=== PATIENT | female | born 1990 | race Caucasian/White ===

== ENCOUNTER 2019-12-30 08:43 | Outpatient (CLI) | payer BC, SELFPAY ==
--- NOTE | 2019-12-30 11:00 | NEURO_ITS ---
Patient Number: [id number] Impression: # Complains of tingling in upper extremities in different positions. # Normal nerve conduction study without evidence of Carpal Tunnel Syndrome or ulnar neuropathy. # Normal needle/EMG exam. Nerve Conduction Studies Anti Sensory Summary Table Stim Site NR Peak (ms) P-T Amp (?V) Site1 Site2 Delta-P (ms) Dist (cm) Gopal (m/s) Left Median Anti Sensory (2-3nd Digit) Wrist 2.6 81.4 Wrist 2-3nd Digit 2.6 14.0 54 Wrist 2.6 89.5 Wrist 2-3nd Digit 2.6 14.0 54 Right Median Anti Sensory (2-3nd Digit) Wrist 2.3 73.1 Wrist 2-3nd Digit 2.3 14.0 61 Wrist 2.3 62.0 Wrist 2-3nd Digit 2.3 14.0 61 Left Radial Anti Sensory (Base 1st Digit) Wrist 1.9 37.3 Wrist Base 1st Digit 1.9 0.0 Right Radial Anti Sensory (Base 1st Digit) Wrist 1.8 46.2 Wrist Base 1st Digit 1.8 0.0 Left Ulnar Anti Sensory (5th Digit) Wrist 2.5 69.2 Wrist 5th Digit 2.5 14.0 56 Right Ulnar Anti Sensory (5th Digit) Wrist 2.4 59.5 Wrist 5th Digit 2.4 14.0 58 Motor Summary Table Stim Site NR Onset (ms) O-P Amp (mV) Site1 Site2 Delta-0 (ms) Dist (cm) Gopal (m/s) Left Median Motor (Abd Poll Brev) Wrist 3.0 3.2 Elbow Wrist 4.3 26.0 60 Elbow 7.3 2.4 Right Median Motor (Abd Poll Brev) Wrist 2.3 7.3 Elbow Wrist 4.2 26.0 62 Elbow 6.5 7.2 Left Ulnar Motor (Abd Dig Minimi) Wrist 2.5 5.9 A Elbow Wrist 4.5 27.0 60 A Elbow 7.0 4.7 Right Ulnar Motor (Abd Dig Minimi) Wrist 2.8 5.0 A Elbow Wrist 4.2 27.0 64 A Elbow 7.0 3.5 B Elbow Wrist 11.0 0.0 B Elbow 13.8 0.1 F Wave Studies NR F-Lat (ms) L-R F-Lat (ms) Left Median (Mrkrs) (Abd Poll Brev) 25.23 0.00 Right Median (Mrkrs) (Abd Poll Brev) 25.23 0.00 Left Ulnar (Mrkrs) (Abd Dig Min) 25.65 1.08 Right Ulnar (Mrkrs) (Abd Dig Min) 24.56 1.08 EMG Side Muscle Nerve Root Ins Act Fibs Amp Dur Recrt Comment Right 1stDorInt Ulnar C8-T1 Nml Nml Nml Nml Nml Right Ext Indicis Radial (Post Int) C7-8 Nml Nml Nml Nml Nml Right Ext Digitorum Radial (Post Int) C7-8 Nml Nml Nml Nml Nml Right BrachioRad Radial C5-6 Nml Nml Nml Nml Nml Right PronatorTeres Median C6-7 Nml Nml Nml Nml Nml Right Abd Poll Brev Median C8-T1 Nml Nml Nml Nml Nml Left 1stDorInt Ulnar C8-T1 Nml Nml Nml Nml Nml Left Ext Indicis Radial (Post Int) C7-8 Nml Nml Nml Nml Nml Left Ext Digitorum Radial (Post Int) C7-8 Nml Nml Nml Nml Nml Left BrachioRad Radial C5-6 Nml Nml Nml Nml Nml Left PronatorTeres Median C6-7 Nml Nml Nml Nml Nml Left Abd Poll Brev Median C8-T1 Nml Nml Nml Nml Nml MTDD
== END 2019-12-30 08:44 | disposition home or self-care (01) ==
PROVIDERS: PCP Internal Medicine; Visit Provider Internal Medicine
DX: R20.2 Paresthesia of skin (principal)
CPT/HCPCS: 95886; 95911

== ENCOUNTER 2020-10-20 08:41 | Observation (INO) | payer BC, SELFPAY ==
[2020-10-20] VITALS (27 sets, daily range): BP systolic 103–116; BP diastolic 51–63; PULSE 68–90; O2SAT 95–100; BMI 27.5
--- NOTE | 2020-10-20 09:41 | OBADM ---
This patient, Trixie Catalan, admitted to the OB room OB Post 117 for observation. Patient/family oriented to hospital policies and general routines including ID bracelet, bed and alarms, visiting hours, pain management, procedures, bathroom and other care routines, personal items, smoking policy, room service/diet, and visiting hours. Patient/Family are encouraged to report perceived risks to care and to ask questions if they do not understand what they are told or what they should do.
[2020-10-20 09:48] LABS: Hematocrit 33.3 % (37.0-47.0); Hemoglobin 11.2 g/dL (12.0-15.0); Mean Corpuscular HGB Conc 33.6 g/dl (32-36); Mean Corpuscular Hemoglobin 30.4 pg (26-34); Mean Corpuscular Volume 90.2 fl (80-100); Mean Platelet Volume 10.8 fl (7.4-10.4); Platelet Count Result 203 k/mm3 (150-375); Red Blood Count 3.69 M/mm3 (4.2-5.4); Red Cell Distribution Width 12.2 % (11.5-14.5)
[2020-10-20 09:54] LABS: Alanine Aminotransferase 11 U/L (4-35); Albumin Level 3.4 g/dL (3.5-5.1); Alkaline Phosphatase 76 U/L (38-126); Anion Gap 2 mmol/L (8-16); Aspartate Amino Transferase 20 U/L (14-36); Bilirubin,Total 0.1 mg/dL (0.2-1.3); Blood Urea Nitrogen 10 mg/dL (7-17); Calcium 8.7 mg/dL (8.4-10.2); Carbon Dioxide 27 mmol/L (22-30); Chloride 107 mmol/L (98-107); Estimated CRCL calculation 118 ml/min; Estimated Glomerular Filt Rate > 60; Glucose 103 mg/dL (65-105); Potassium 4.3 mmol/L (3.4-5.0); Sodium 136 mmol/L (137-145)
[2020-10-20 10:07] LABS: Add Urine Microscopic? YES; Appearance Urine Cloudy (Clear); Bacteria Urine Trace /hpf; Bilirubin Urine Negative (Negative); Blood Urine Negative (Negative); Color Urine Yellow (Yellow); Glucose Urine UA Negative (Negative); Ketones Urine Negative (Negative); Leukocyte Esterase Ur 2+ LEU/UL (Negative); Nitrate Urine Negative (Negative); Protein Urine Negative (Negative); Specific Grav Ur 1.006 (1.001-1.035); Squamous Epithelial Cell Urine Many /hpf (Few); Urobilinogen Urine Negative mg/dL (<2.0)
--- NOTE | 2020-10-25 07:41 | PM.OBTRLD ---
OB - Triage/Final Diagnosis Visit Information Comments/Additional reasons for admission: I have assessed the risk for this patient, Trixie Catalan, and determined that she would benefit from observation care. Evaluation Laboratory results: Laboratory Tests 10/20/20 10/20/20 10/20/20 09:13 09:13 09:13 WBC 8.0 RBC 3.69 L Hgb 11.2 L Hct 33.3 L MCV 90.2 MCH 30.4 MCHC 33.6 RDW 12.2 Plt Count 203 MPV 10.8 H Sodium 136 L Potassium 4.3 Chloride 107 Carbon Dioxide 27 Anion Gap 2 L BUN 10 Creatinine 0.60 L Estim Creat Clear Calc 118 Estimated GFR > 60 Glucose 103 Calcium 8.7 Total Bilirubin 0.1 L AST 20 ALT 11 Alkaline Phosphatase 76 Total Protein 7.0 Albumin 3.4 L Urine Color Yellow Urine Appearance Cloudy H Urine pH 7.0 Ur Specific [place] 1.006 Urine Protein Negative Urine Glucose (UA) Negative Urine Ketones Negative Ur Blood (Man) Negative Urine Nitrate Negative Urine Bilirubin Negative Urine Urobilinogen Negative Leukocyte Esterase Rfl 2+ H Urine WBC 7-9 H Ur Squamous Epith Cells Many H Urine Bacteria Trace
--- NOTE | 2020-10-27 11:23 | PM.OBTRLD ---
OB - Triage/Final Diagnosis Visit Information Reason for evaluation: threatened labor Comments/Additional reasons for admission: I have assessed the risk for this patient, Trixie Catalan, and determined that she would benefit from observation care. Evaluation Laboratory results: Laboratory Tests 10/20/20 10/20/20 10/20/20 09:13 09:13 09:13 WBC 8.0 RBC 3.69 L Hgb 11.2 L Hct 33.3 L MCV 90.2 MCH 30.4 MCHC 33.6 RDW 12.2 Plt Count 203 MPV 10.8 H Sodium 136 L Potassium 4.3 Chloride 107 Carbon Dioxide 27 Anion Gap 2 L BUN 10 Creatinine 0.60 L Estim Creat Clear Calc 118 Estimated GFR > 60 Glucose 103 Calcium 8.7 Total Bilirubin 0.1 L AST 20 ALT 11 Alkaline Phosphatase 76 Total Protein 7.0 Albumin 3.4 L Urine Color Yellow Urine Appearance Cloudy H Urine pH 7.0 Ur Specific [place] 1.006 Urine Protein Negative Urine Glucose (UA) Negative Urine Ketones Negative Ur Blood (Man) Negative Urine Nitrate Negative Urine Bilirubin Negative Urine Urobilinogen Negative Leukocyte Esterase Rfl 2+ H Urine WBC 7-9 H Ur Squamous Epith Cells Many H Urine Bacteria Trace
== END 2020-10-20 10:45 | disposition home or self-care (01) ==
PROVIDERS: Obstetrics & Gynecology; Admitting Provider Obstetrics & Gynecology; PCP Internal Medicine; Visit Provider Obstetrics & Gynecology
DX: O47.9 False labor, unspecified (principal); Z3A.00 Weeks of gestation of pregnancy not specified
CPT/HCPCS: 36415; 80053; 81001; 85027; 87086; 87088; G0378; G0379

== ENCOUNTER 2020-11-19 13:36 | Outpatient (RCR) | payer BC, SELFPAY ==
[2020-10-13 15:03] VITALS: BP 112/60; PULSE 77
[2020-11-04 11:27] VITALS: BP 103/59; PULSE 80
== END 2020-11-27 09:10 | disposition home or self-care (01) ==
LOC: ANHOBOP 13:36
PROVIDERS: PCP Internal Medicine; Visit Provider Obstetrics & Gynecology
DX: O99.413 Diseases of the circulatory system complicating pregnancy, third trimester (principal); I99.9 Unspecified disorder of circulatory system; Z3A.32 32 weeks gestation of pregnancy
CPT/HCPCS: 59025; J0131; J2250; J2274; J2590

== ENCOUNTER 2020-11-25 07:34 | Inpatient (IN) | payer BC, SELFPAY ==
[2020-11-04 11:32] VITALS: BMI 28.6
[2020-11-25] VITALS (176 sets, daily range): BP systolic 53–154; BP diastolic 26–114; PULSE 55–269; RESP 15–22; TEMP 36.3–37; O2SAT 89–100; BMI 29.9
[2020-11-25] MEDS: LACTATED RINGERS 1,000 ML 999 ML (08:06)
[2020-11-25 08:11] LABS: Basophils Percent Auto 0.4 % (0.2-1.2); Eosinophils Absolute Auto 0.1 K/mm3 (0-0.3); Hematocrit 35.5 % (37.0-47.0); Immature Granulocyte Absolute 0.04 K/mm3 (0.00-0.031); Immature Granulocyte Percent A 0.5 % (0-0.5); Lymphocytes Percent Auto 19.2 % (18.3-44.2); Mean Corpuscular HGB Conc 33.8 g/dl (32-36); Mean Corpuscular Hemoglobin 29.9 pg (26-34); Mean Corpuscular Volume 88.5 fl (80-100); Mean Platelet Volume 11.2 fl (7.4-10.4); Monocytes Absolute Auto 0.6 K/mm3 (0.1-0.6); Monocytes Percent Auto 7.1 % (2.6-8.5); Neutrophils Absolute Auto 5.6 K/mm3 (1.3-6.7); Neutrophils Percent Auto 71.8 % (45.5-73.1); Platelet Count Result 225 k/mm3 (150-375); Red Blood Count 4.01 M/mm3 (4.2-5.4); Red Cell Distribution Width 12.1 % (11.5-14.5); White Blood Count 7.8 K/mm3 (4.5-10.0)
--- NOTE | 2020-11-25 09:05 | WPDANESEPP ---
Anes - Eval Pre Procedure Procedure: labor epidural Date/Time: 11/25/20 09:05 Pre Op Diagnosis: Contractions Patient Data Age: 30 Gender: F Height: 1.65 m Weight: 78 kg Last Vital Signs Pulse 78 11/25/20 09:05 BP 127/91 H 11/25/20 09:05 Pulse Ox 99 11/25/20 09:04 Allergies Allergy/AdvReac Type Severity Reaction Status Date / Time No Known Allergies Allergy Verified 11/22/19 08:19 Home Medications Medication Instructions Recorded Confirmed Type acetaminophen [Tylenol Extra 500 mg PO Q6H PRN 06/18/19 11/04/20 History Strength] calcium carbonate [Tums E-X] 300 mg PO TID 06/18/19 11/04/20 History loratadine [Claritin] 10 mg PO DAILY 06/18/19 11/25/20 History omeprazole 20 mg PO DAILY 06/18/19 11/25/20 History [id number] fumarate-FA 1 tablet PO DAILY 11/25/20 11/25/20 History [] Laboratory Tests 11/25/20 11/25/20 08:03 08:03 WBC 7.8 K/mm3 K/mm3 (4.5-10.0) RBC 4.01 M/mm3 L M/mm3 (4.2-5.4) Hgb 12.0 g/dL g/dL (12.0-15.0) Hct 35.5 % L % (37.0-47.0) MCV 88.5 fl fl (80-100) MCH 29.9 pg pg (26-34) MCHC 33.8 g/dl g/dl (32-36) RDW 12.1 % % (11.5-14.5) Plt Count 225 k/mm3 k/mm3 (150-375) MPV 11.2 fl H fl (7.4-10.4) Immature Gran % (Auto) 0.5 % % (0-0.5) Neut % (Auto) 71.8 % % (45.5-73.1) Lymph % (Auto) 19.2 % % (18.3-44.2) [place] % (Auto) 7.1 % % (2.6-8.5) Eos % (Auto) 1.0 % % (0-4.4) Baso % (Auto) 0.4 % % (0.2-1.2) Lymph # (Auto) 1.50 K/mm3 K/mm3 (0.9-3.2) [place] # (Auto) 0.6 K/mm3 K/mm3 (0.1-0.6) Eos # (Auto) 0.1 K/mm3 K/mm3 (0-0.3) Baso # (Auto) 0.0 K/mm3 K/mm3 (0.0-0.1) Abs Immat Gran (auto) 0.04 K/mm3 H K/mm3 (0.00-0.031) Absolute Neuts (auto) 5.6 K/mm3 K/mm3 (1.3-6.7) Absolute Nucleated RBC 0.0 K/mm3 K/mm3 (0.0-0.012) Nucleated RBC % 0.0 % % (0.0-0.2) RPR Pending Patient hx anesthesia problems: none Family hx anesthesia problems: none [facility] Past Medical History Medical History Ebsteins anomaly Family History Family History Mother Heart disease Social History Social History Smoking status: Never smoker Second hand tobacco smoke exposure: No Substance use: never Gender identity (if verbalized by the patient): Female Sexual Orientation (if Verbalized by the Patient): Straight or Heterosexual Spiritual care concerns: No Comments 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
[2020-11-25] MEDS: LACTATED RINGERS 1,000 ML 125 ML IV CONT ×2 (09:09→10:54)
--- NOTE | 2020-11-25 09:42 | LDADM ---
This patient, Trixie Catalan, was admitted to Labor/Delivery/Recovery 107 on 11/25/20 at 07:34. Plans for labor, pain management and were discussed with patient. Patient/family oriented to hospital policies and general routines including ID bracelet, bed and alarms, visiting hours, pain management, procedures, bathroom and other care routines, personal items, smoking policy, room service/diet and guest tray routines, security routines, and visiting hours. Patient/Family are encouraged to report perceived risks to care and to ask questions if they do not understand what they are told or what they should do. See OBIX for further documentation.
--- NOTE | 2020-11-25 09:53 | WPDOBADMIT ---
Obstetrics - Admit Note Admission Note: record reviewed. Additions to the history and/or subsequent changes in the physical findings follow. 30 y/o at 38 4/7 weeks gestation here with contractions. GBS neg. uncomplicated. 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 No restrictions or specific advice from cardiology related to labor / pushing. Rh neg, is also Rh neg. Has been admitted for labor. Comfortable with epidural. AVSS NST reactive TOCO: contractions every 2-4 min ABD soft, nontender, gravid, vertex EXT nontender Cervix 5/50/-2. AROM with clear fluid. A: IUP at term with labor. P: Anticipate ..
[2020-11-25] MEDS: SODIUM CHLORIDE 0.9% IV 300 ML 600 ML I-UTERINE (11:54)
[2020-11-25] MEDS: OXYTOCIN 30 UNITS/NS 500 ML 30 UNITS/500 ML BAG IV CONT (12:39)
--- NOTE | 2020-11-25 15:21 | PM.OBPNLAB ---
Pain Control Date/time seen: 11/25/20 15:21 Comments: Still comfortable with epidural. Cervix unchanged for >4 hours. Unable to achieve adequate contractions with oxytocin due to FHR decelerations. Pelvic Exam Dilation (cm): 6 Effacement (%): 80 station: -1 Comments: Occiput transverse Contractions Contraction frequency: 4 Contraction pattern: Regular Status status: Category ll Assessment and Plan Comments: A: Nonreassuring FHR tracing remote from delivery. P: Offered primary . She understands risks of surgery to include risks of anesthesia, risks of pain, infection, bleeding, blood products, thromboembolic phenomena and damage to adjacent structures such as bowel, bladder, ureters, blood vessels and nerves. She understands all these risks and elects to proceed with surgery.
--- NOTE | 2020-11-25 15:23 | PM.IMHP ---
H&P: HPI History of Present Illness Date/Time: 11/25/20 15:23 30 y/o at 38 4/7 weeks with labor. Comfortable with epidural. FHR decelerations have prohibited adequate labor augmentation and she has had no cervical change in >4 hours. Now FHR is 160 with variable decelerations. Chief Complaint: Contractions Review of Systems Review of Systems: All systems reviewed & are unremarkable except as noted in HPI and below PMFSH Past Medical History Medical History (Updated 11/25/20 @ 15:28 by Blayne Khalil MD) Ebsteins anomaly Surgical History Surgical History History of heart valve repair Family History Family History Mother Heart disease Social History Social History Smoking status: Never smoker Second hand tobacco smoke exposure: No Substance use: never Gender identity (if verbalized by the patient): Female Sexual Orientation (if Verbalized by the Patient): Straight or Heterosexual Spiritual care concerns: No Meds Home Medications and Allergies Home Medications Medication Instructions Recorded Confirmed Type acetaminophen [Tylenol Extra 500 mg PO Q6H PRN 06/18/19 11/04/20 History Strength] calcium carbonate [Tums E-X] 300 mg PO TID 06/18/19 11/04/20 History loratadine [Claritin] 10 mg PO DAILY 06/18/19 11/25/20 History omeprazole 20 mg PO DAILY 06/18/19 11/25/20 History [id number] fumarate-FA 1 tablet PO DAILY 11/25/20 11/25/20 History [] Allergies Allergy/AdvReac Type Severity Reaction Status Date / Time No Known Allergies Allergy Verified 11/22/19 08:19 Vital Signs Vital Signs - 24 hr 11/25/20 07:49 11/25/20 08:01 11/25/20 08:11 Temperature Pulse Rate 74 269 H Respiratory Rate Blood Pressure 126/61 113/72 Pulse Oximetry 97 11/25/20 08:18 11/25/20 08:23 11/25/20 08:28 Temperature Pulse Rate Respiratory Rate Blood Pressure Pulse Oximetry 100 100 100 11/25/20 08:33 11/25/20 08:37 11/25/20 08:39 Temperature Pulse Rate 71 Respiratory Rate Blood Pressure 111/83 Pulse Oximetry 100 98 11/25/20 08:42 11/25/20 08:43 11/25/20 08:44 Temperature Pulse Rate 99 Respiratory Rate Blood Pressure 130/83 Pulse Oximetry 100 100 11/25/20 08:46 11/25/20 08:48 11/25/20 08:49 Temperature Pulse Rate 84 78 Respiratory Rate Blood Pressure 145/85 H 126/70 Pulse Oximetry 98 11/25/20 08:52 11/25/20 08:54 11/25/20 08:56 Temperature Pulse Rate 72 88 122 H Respiratory Rate Blood Pressure 116/83 113/57 L 117/89 Pulse Oximetry 99 11/25/20 08:57 11/25/20 09:00 11/25/20 09:02 Temperature 36.6 C Pulse Rate 102 H 100 Respiratory Rate Blood Pressure 130/88 128/99 H Pulse Oximetry 99 99 11/25/20 09:04 11/25/20 09:05 11/25/20 09:06 Temperature Pulse Rate 78 95 Respiratory Rate Blood Pressure 127/91 H 102/81 Pulse Oximetry 99 11/25/20 09:08 11/25/20 09:09 11/25/20 09:12 Temperature Pulse Rate 75 77 Respiratory Rate Blood Pressure 92/70 L 120/58 L Pulse Oximetry 100 11/25/20 09:14 11/25/20 09:15 11/25/20 09:16 Temperature Pulse Rate 76 75 Respiratory Rate Blood Pressure 112/99 H 113/62 Pulse Oximetry 99 11/25/20 09:19 11/25/20 09:24 11/25/20 09:27 Temperature Pulse Rate 67 93 Respiratory Rate Blood Pressure 106/50 L 53/26 L Pulse Oximetry 98 100 100 11/25/20 09:32 11/25/20 09:36 11/25/20 09:41 Temperature Pulse Rate 75 101 H Respiratory Rate Blood Pressure 107/52 L 91/51 L Pulse Oximetry 99 100 100 11/25/20 09:46 11/25/20 09:51 11/25/20 09:56 Temperature Pulse Rate 74 Respiratory Rate Blood Pressure 117/53 L Pulse Oximetry 100 100 100 11/25/20 10:01 11/25/20 10:06 11/25/20 10:07 Temperature P
[2020-11-25] MEDS: ceFAZolin 2 GM/D5W 50 ML 2 GM/50 ML BAG IVPB (15:27)
--- NOTE | 2020-11-25 16:23 | P.PCNOB_ITS ---
OB - Delivery Note Procedure Delivery date: 11/25/20 Procedure: Procedures Operation Date: 11/25/20 15:00 <No data on this case meets the specified criteria> Primary Low Transverse Delivery Specimen: Yes (cord blood) Quantitative Blood Loss (ml): 595 Anesthesia type: Epidural Disposition: PACU Complications: None Narrative: The patient was taken to the operating room where she was prepared and draped in the usual sterile fashion in dorsal supine position with a leftward tilt. She received cefazolin preoperatively. Epidural anesthesia was found to be adequate. A Pfannenstiel skin incision was made and carried through to the underlying layer of the fascia. The fascia was incised in the midline and the incision was extended laterally. The fascia was dissected free of the underlying rectus muscles. The rectus muscles were in the midline. The peritoneum was identified, tented up and entered sharply. The peritoneal incision was extended superiorly and inferiorly with good visualization of the bladder. The bladder blade was placed. The vesicouterine peritoneum was identified, tented up and entered sharply. The incision was extended laterally and the bladder flap was developed. The bladder blade was replaced. The uterus was then incised sharply in a transverse fashion along the lower uterine segment. The incision was extended laterally. The infant's head was delivered atraumatically to the sterile field, followed by the body. The nose and mouth were bulb suctioned. After a delay, the cord was clamped and cut. The infant was handed off the field. Cord blood was collected. The placenta was removed manually and was passed off the field. The uterus was exteriorized and cleared of all clots and debris. The uterine incision was reapproximated using 0 Monocryl in a running, locked fashion. A second imbricating layer of the same suture was placed. Hemaderm was applied to the bladder flap. Excellent hemostasis resulted as did excellent reapproximation of the normal anatomy. The uterus was returned the abdomen. The pelvis was irrigated copiously with warmed normal saline. Rigorous hemostasis was assured. The fascial layer was reapproximated using 0 Vicryl in a running fashion. The skin was closed with a running, subcuticular stitch of 4 0 Vicryl. Dermaflex was applied externally. Sponge, lap, needle and instrument counts were correct. The patient was taken to the recovery room in stable condition. The went to the nursery in stable condition. I was present and scrubbed the entire procedure. [place] Baby Date of : 11/25/20 Time of : 15:47 Weeks of gestation at delivery: 38 Infant gender: Male Weight (pounds): 6 Weight (ounces): 8 presentation: vertex position: Left Occiput Transverse Placenta delivery description: Manual Removal and Normal Configuration cord vessel description: 3 Vessels, Nuchal Cord and Delayed Cord Clamping score one minute: 6 score five minutes: 8
--- NOTE | 2020-11-25 16:25 | P.DS_ITS ---
DS: Admitting Diagnosis Admitting Diagnosis Admitting Diagnosis: Labor DS: Discharge Diagnosis Discharge Diagnosis (1) delivery delivered: Code(s): O82 - Encounter for delivery without indication Status: Acute OB - DS: Summary OB Procedures : None OB Procedures Intrapartum: OB Procedures: : None Peripartum Data Procedures: Procedures Operation Date: 11/25/20 15:00 <No data on this case meets the specified criteria> Primary LTCS DS: Data Data Completed and Pending Labs on day of discharge: Labs from last 24 hours 11/25/20 11/25/20 11/25/20 08:03 08:03 08:03 WBC 7.8 RBC 4.01 L Hgb 12.0 Hct 35.5 L MCV 88.5 MCH 29.9 MCHC 33.8 RDW 12.1 Plt Count 225 MPV 11.2 H Immature Gran % (Auto) 0.5 Neut % (Auto) 71.8 Lymph % (Auto) 19.2 [place] % (Auto) 7.1 Eos % (Auto) 1.0 Baso % (Auto) 0.4 Lymph # (Auto) 1.50 [place] # (Auto) 0.6 Eos # (Auto) 0.1 Baso # (Auto) 0.0 Abs Immat Gran (auto) 0.04 H Absolute Neuts (auto) 5.6 Absolute Nucleated RBC 0.0 Nucleated RBC % 0.0 RPR Pending Blood Type O Negative Antibody Screen Negative Discharge Plan Discharge Attending physician on discharge: Navdeep Flannery Discharging Clinician: Blayne Khalil Patient Disposition: Home, Self-Care Activity: may shower, may drive after 2 weeks and pelvic rest Diet: regular Wound Care Instructions: incision open to air Discharge Instructions: Call or return if temperature above 100.4? F, increased abdominal pain, increased vaginal bleeding or any new problems. Stand Alone Forms: General Discharge Information Follow-up/Referrals: Navdeep Flannery MD [Physician] - 4 Weeks Discharge Medications: New hydrocodone-acetaminophen 5-325 mg tablet 1 - 2 tablet PO Q6H PRN (Reason: pain) Qty: 30 RF: 0 ibuprofen 600 mg tablet 600 mg PO Q6H PRN (Reason: cramps) Qty: 30 RF: 0 ferrous sulfate 325 mg (65 mg iron) tablet 325 mg PO DAILY Qty: 30 RF: 0 Continued calcium carbonate [Tums E-X] 300 mg (750 mg) Tablet,Chewable 300 mg PO TID RF: 0 acetaminophen [Tylenol Extra Strength] 500 mg Tablet 500 mg PO Q6H PRN (Reason: Pain) RF: 0 loratadine [Claritin] 10 mg Tablet 10 mg PO DAILY RF: 0 omeprazole 20 mg Tablet,Delayed Release (Dr/Ec) 20 mg PO DAILY RF: 0 28-800 mg-mcg Tablet 1 tablet PO DAILY RF: 0 Date of admission: 11/25/20 07:34 Primary Care Provider: Armen Garza Admitting Provider: Navdeep Flannery Attending physician on admission: Navdeep Flannery Condition: Stable
[2020-11-25] MEDS: KETOROLAC 30 MG/ML VIAL (*BKC) IV PUSH (17:30)
--- NOTE | 2020-11-25 17:48 | PC.NURSE ---
1617--Epidural cath pulled per Danay Feng CRNA, tip intact.
[2020-11-25] MEDS: MORPHINE SULFATE (*CRX) 2 MG/ML INJ IV PUSH (18:28)
--- NOTE | 2020-11-25 19:37 | OBPPTRN ---
11/25/2020 at 1838. Patient transferred to post room #282 via stretcher. Support person and baby in crib also present as well as three OB nurses. Patient transferred to bed with maxi air glide without diffuculty. Patient and her significant other oriented to unit, room, information board, rooming in, admission packet and security measures. Patient verbalizes understanding.
[2020-11-25] MEDS: KCL 20 MEQ/D5/0.45% SOD CHL 1,000 ML 125 ML IV CONT (19:59)
[2020-11-25] MEDS: ONDANSETRON INJ 4 MG/2 ML VIAL IV PUSH (22:38)
[2020-11-26 03:45] VITALS: BP 98/57; PULSE 63; RESP 18; TEMP 36.6; O2SAT 98
[2020-11-26] MEDS: KETOROLAC 30 MG/ML VIAL (*BKC) IV PUSH (04:18)
[2020-11-26] MEDS: diphenhydrAMINE HCl INJ 50 MG/ML VIAL 25 MG IV PUSH (05:37)
[2020-11-26 05:38] LABS: Basophils Percent Auto 0.4 % (0.2-1.2); Eosinophils Percent Auto 0.3 % (0-4.4); Hematocrit 28.7 % (37.0-47.0); Hemoglobin 9.4 g/dL (12.0-15.0); Immature Granulocyte Absolute 0.04 K/mm3 (0.00-0.031); Immature Granulocyte Percent A 0.4 % (0-0.5); Lymphocytes Absolute Auto 0.95 K/mm3 (0.9-3.2); Lymphocytes Percent Auto 9.6 % (18.3-44.2); Mean Corpuscular HGB Conc 32.8 g/dl (32-36); Mean Corpuscular Hemoglobin 29.2 pg (26-34); Mean Corpuscular Volume 89.1 fl (80-100); Mean Platelet Volume 10.9 fl (7.4-10.4); Monocytes Absolute Auto 0.6 K/mm3 (0.1-0.6); Monocytes Percent Auto 5.9 % (2.6-8.5); Neutrophils Absolute Auto 8.3 K/mm3 (1.3-6.7); Neutrophils Percent Auto 83.4 % (45.5-73.1); Platelet Count Result 167 k/mm3 (150-375); Red Blood Count 3.22 M/mm3 (4.2-5.4); Red Cell Distribution Width 12.3 % (11.5-14.5); White Blood Count 9.9 K/mm3 (4.5-10.0)
--- NOTE | 2020-11-26 07:19 | WPDANLDNPN2 ---
Anes-Prog Note L&D-Neuraxial Date/Time: 11/26/20 07:19 Neuraxial medications: epidural PF morphine Opiod-related complaints: none Patient feedback: Patient satisfied with post-operative pain management.
--- NOTE | 2020-11-26 07:19 | WPDANLDPN2 ---
Anes-Prog Note L&D Date/Time: 11/26/20 07:19 Comfortable throughout: section Neuraxial method: epidural Epidural/Spinal procedure site: clean & non-tender Neuro status: Neuro function grossly intact. Cardiovascular status: normal Respiratory status: normal Airway patency: baseline Mental status: baseline Post-Op hydration status: normal Vital Signs: Last Vital Signs Temp 36.6 C 11/26/20 03:45 Pulse 63 11/26/20 03:45 Resp 18 11/26/20 03:45 BP 98/57 L 11/26/20 03:45 Pulse Ox 98 11/26/20 03:45 Pain score (VAS): 0 I/O: Intake & Output 11/25/20 11/25/20 11/26/20 15:59 23:59 07:59 Intake Total 1426 342 9909 Output Total 800 1670 575 Balance 200 -1270 955 Patient feedback: Patient satisfied with anesthetic care.
[2020-11-26 07:20] VITALS: BP 106/51; PULSE 64; RESP 18; TEMP 36.7
--- NOTE | 2020-11-26 08:54 | P.PNOB_ITS ---
OB - PN: Subj Subjective Date/time seen: 11/26/20 08:54 Narrative: Pain OK. Tolerating diet. Would like circumcision for son. OB - PN: Obj Data Labs CBC & Chem 7: 11/26/20 05:31 Labs: Laboratory Results - last 24 hr 11/25/20 11/26/20 08:03 05:31 WBC 9.9 RBC 3.22 L Hgb 9.4 L Hct 28.7 L MCV 89.1 MCH 29.2 MCHC 32.8 RDW 12.3 Plt Count 167 MPV 10.9 H Immature Gran % (Auto) 0.4 Neut % (Auto) 83.4 H Lymph % (Auto) 9.6 L [place] % (Auto) 5.9 Eos % (Auto) 0.3 Baso % (Auto) 0.4 Lymph # (Auto) 0.95 [place] # (Auto) 0.6 Eos # (Auto) 0.0 Baso # (Auto) 0.0 Abs Immat Gran (auto) 0.04 H Absolute Neuts (auto) 8.3 H Absolute Nucleated RBC 0.0 Nucleated RBC % 0.0 Blood Type O Negative Antibody Screen Negative OB - PN A/P Plan Comments: A: POD#1, doing well. P: Routine care. Reviewed circ. Exam Narrative: Exam Narrative: AVSS I/O OK ABD soft, nontender, fundus firm. Incision c/d/i. EXT nontender
[2020-11-26] MEDS: DOCUSATE SODIUM 100 MG CAPSULE PO ×2 (09:34→16:33)
[2020-11-26] MEDS: MULTIVIT/MIN/PREN/FOL AC/IRON TABLET 1 TAB PO (09:34)
[2020-11-26] MEDS: HYDROcodone/acetaminophen (*CRX) 5-325 MG TABLET 1 TAB PO ×4 (09:34→23:34)
[2020-11-26] MEDS: POLYSACCHARIDE IRON COMPLEX 150 MG CAPSULE PO ×2 (09:34→16:34)
[2020-11-26] MEDS: IBUPROFEN 600 MG TABLET PO ×3 (09:35→23:34)
[2020-11-26 12:15] VITALS: BP 126/67; PULSE 67; RESP 20; TEMP 36.7
[2020-11-26 20:20] VITALS: BP 107/54; PULSE 64; RESP 18; TEMP 36.2
[2020-11-27] MEDS: HYDROcodone/acetaminophen (*CRX) 5-325 MG TABLET 1 TAB PO ×2 (05:19→09:48)
[2020-11-27] MEDS: IBUPROFEN 600 MG TABLET PO (05:19)
--- NOTE | 2020-11-27 07:10 | PM.OBPNVD ---
OB - PN: Subj Subjective Date/time seen: 11/27/20 07:10 Patient comments: no complaints and pain well controlled baby status: doing well and nursing well OB - PN: Obj Data Labs CBC & Chem 7: 11/26/20 05:31 OB - PN A/P Plan day: 2 Plan: routine care, discharge home and follow up 6 weeks (4 wweeks) Time Spent With Patient Time: Total time spent is greater than 50% in coordination of care (as documented) at patient's floor/unit and/or counseling patient: Time with patient: less than 15 minutes Review of Systems Review of Systems: All systems reviewed & are unremarkable except as noted in HPI and below Exam Const: General: no acute distress Eyes: General: appearance normal, both eyes and all related structures Neck: Neck: supple and no JVD Thyroid: thyroid normal Resp: Effort & Inspection: normal respiratory effort Auscultation: clear to auscultation bilaterally Cardio: Rate: regular rate Rhythm: regular rhythm GI: Inspection: normal to inspection and incision (cdi) GI Palp: Yes abdominal tenderness Percussion: Yes normal to percussion Auscultation: normal bowel sounds : General: Yes bladder normal to palpation External Female Exam: normal external appearance Speculum Exam - Vagina: normal vaginal discharge and No vaginal bleeding Speculum Exam - Cervix: nontender Bimanual exam- vagina & uterus: bladder normal to palpation and No Cervical tenderness present OB/external & speculum: No vaginal bleeding Skin: General skin exam: no rashes or lesions noted Extrem: General: normal to inspection and no edema Psych: Mental Status: mental status grossly normal Affect: normal affect
--- NOTE | 2020-11-27 07:12 | P.DS_ITS ---
DS: Admitting Diagnosis Admitting Diagnosis Admitting Diagnosis: term iup DS: Summary Hospital Course Hospital Course: Patient was admitted at term in active labor. heart tones determine the need for section. Her hospital course was unremarkable. She remained afebrile. She was up, voiding without difficulty, ambulating, eating a regular diet, and generally thought complains Time Spent with Patient Time attestation: Total time spent providing and/or coordinating discharge services: Exam Const: General: no acute distress Eyes: General: appearance normal, both eyes and all related structures Neck: Neck: supple and no JVD Thyroid: thyroid normal Resp: Effort & Inspection: normal respiratory effort Auscultation: clear to auscultation bilaterally Cardio: Rate: regular rate Rhythm: regular rhythm GI: Inspection: non-distended GI Palp: Yes Soft to palpation, No Tenderness to palpation present (GI) and No Guarding due to palpation present (GI) Ausc ultation: normal bowel sounds : General: Yes bladder normal to palpation External Female Exam: normal external appearance Speculum Exam - Vagina: normal vaginal discharge and No vaginal bleeding Speculum Exam - Cervix: nontender Bimanual exam- vagina & uterus: bladder normal to palpation and No Cervical tenderness present OB/external & speculum: No vaginal bleeding Skin: General skin exam: no rashes or lesions noted Extrem: General: normal to inspection and no edema Psych: Mental Status: mental status grossly normal Affect: normal affect Discharge Plan Discharge Attending physician on discharge: Navdeep Flannery Discharging Clinician: Blayne Khalil Patient Disposition: Home, Self-Care Activity: may shower, may drive after 2 weeks and pelvic rest Diet: regular Wound Care Instructions: incision open to air Discharge Instructions: Call or return if temperature above 100.4? F, increased abdominal pain, increased vaginal bleeding or any new problems. Stand Alone Forms: General Discharge Information Follow-up/Referrals: Navdeep Flannery MD [Physician] - 4 Weeks Discharge Medications: New hydrocodone-acetaminophen 5-325 mg tablet 1 - 2 tablet PO Q6H PRN (Reason: pain) Qty: 30 RF: 0 ibuprofen 600 mg tablet 600 mg PO Q6H PRN (Reason: cramps) Qty: 30 RF: 0 ferrous sulfate 325 mg (65 mg iron) tablet 325 mg PO DAILY Qty: 30 RF: 0 Continued calcium carbonate [Tums E-X] 300 mg (750 mg) Tablet,Chewable 300 mg PO TID RF: 0 acetaminophen [Tylenol Extra Strength] 500 mg Tablet 500 mg PO Q6H PRN (Reason: Pain) RF: 0 loratadine [Claritin] 10 mg Tablet 10 mg PO DAILY RF: 0 omeprazole 20 mg Tablet,Delayed Release (Dr/Ec) 20 mg PO DAILY RF: 0 28-800 mg-mcg Tablet 1 tablet PO DAILY RF: 0 Date of admission: 11/25/20 07:34 Primary Care Provider: Armen Garza Admitting Provider: Navdeep Flannery Attending physician on admission: Navdeep Flannery Condition: Stable
--- NOTE | 2020-11-27 07:25 | PC.NURSE ---
Patient viewed the discharge video Mother & Baby Care, The First Two Weeks . Patient was given the opportunity and encouraged to ask questions. Patient verbalized understanding of information shared and has been given the mother/baby guide for home reference.
[2020-11-27 07:45] VITALS: BP 102/55; PULSE 66; RESP 16; TEMP 36.9; O2SAT 99
[2020-11-27 09:27] LABS: Rapid Plasma Reagin Non-Reactive (NonReactive)
--- NOTE | 2020-11-27 09:30 | PC.NURSE ---
0930 Mother called out for assist with feeding. Mother reports eagerly fed the first day, then began with sleepy feeding after circumcision. had difficulties staying awake with feedings. Mother states was up and wanting to feed every hour during the night. Mother began with supplementation this morning. Mother began pumping after began sleepy feeding. Consulted with patient, reviewed infant feeding cues, frequencies, duration of feedings, feeding elimination flow sheet, and signs of adequate intake. Demonstrated stimulation techniques to wake infant for feeding. Assisted with infant to breast. Reviewed positioning/alignment in cross cradle, holding breast in ?U? hold and guided asymmetrical latch on. Infant able to latch correctly. Infant nursed sleepily with occasional draws followed by long pausing. Mother reports this is how infant has fed for most feedings. Discussed the difference of effective nursing vs ineffective nursing. Reviewed signs of a correct latch, effective nursing and suck swallow ratio. Infant was able to maintain latch without discomfort to mother, although minimal suckling was noted. Infant would slip to shallow latch, mother reports tenderness. Demonstrated how to adjust latch more deeply while feeding. Mother reports she can feel change in latch and has no tenderness. Suggested mother stimulate while feeding to increase stimulate, increase intake and to assist with maintaining deep latch. had little response to stimulation, an occasional burst of suckling and returning to long pauses with no suckling. Discussed is doing minimal effective feeding and needs to continue with supplementation and pumping. Suggested mother continue with the 20-25mls of EBM/formula and increase supplement as infant requires to satisfaction. Reviewed paced feeding and suggested to stop when is satisfied and continues with required output. Discussed signs when infant may be ready to increase supplementation and signs when infant may be ready to decrease supplementation. Reviewed infant should be able to latch and have effective feeding with long draws and freq swallowing noted for at least 10-15 minutes and infant should be satisfied before supplement is decreased/discontinued. Reviewed may not want to feed for 4 hours from last feeding if being supplemented 30+ mls, advised for mother to pump on feeding schedule and increase to 20 minutes if pumping every 4 hours. Mother is currently pumping without difficulties or discomfort. Parents voice understanding. Nipple care reviewed of lanolin after feedings, warm compresses and gel pads as needed. Reviewed follow up visit RN can evaluate feeding or can call for LC for evaluation. Feeding plan implemented of infant to breast each feeding, then supplement and mother will pump. Mother verbalizes she is able to independently latch infant with appropriate positioning/alignment. She denies any nipple discomfort, is feeding as required and waking infant to feed if needed. has had a few effective feedings in the past 24 hours, mother will supplement after all feedings. is currently meeting outcomes for weight, output, jaundice and feeding frequencies. Mother states she feels confident to continue current feeding plan at home. Reviewed transition to breast milk, signs of adequate intake, and engorgement/relief. Instructed to call ICP if intake/output less than required. Reviewed regular medications mother is taking. Information provided per Nerissa. Reviewed community resources on the [facility] website and in the Mom/Baby guide. Information on outpatient services provided. Mother has no further questions at this time.
[2020-11-27] MEDS: DOCUSATE SODIUM 100 MG CAPSULE PO (09:48)
[2020-11-27] MEDS: POLYSACCHARIDE IRON COMPLEX 150 MG CAPSULE PO (09:48)
[2020-11-27] MEDS: MULTIVIT/MIN/PREN/FOL AC/IRON TABLET 1 TAB PO (09:48)
[2020-11-29 13:12] VITALS: BP 127/70; PULSE 90; RESP 20; TEMP 37.2; O2SAT 98
== END 2020-11-27 11:00 | disposition home or self-care (01) | DRG 788 ==
LOC: ANHLDR 16:26 → ANHOB2 18:39
PROVIDERS: Admitting Provider Obstetrics & Gynecology; PCP Internal Medicine; Visit Provider Obstetrics & Gynecology
PROC: 10D00Z1 Extraction of Products of Conception, Low, Open Approach (ICD-10-PCS; CPT 59514; principal; 2020-11-25 15:00)
DX: O76 Abnormality in fetal heart rate and rhythm complicating labor and delivery (principal); Z3A.38 38 weeks gestation of pregnancy; Z37.0 Single live birth; Z95.4 Presence of other heart-valve replacement
CPT/HCPCS: 36415; 85025; 86592; 86850; 86900; 86901; A9270; J0131; J0690; J1200; J1885; J2270; J2405; J2590; J2795; J3480; J7030; J7120

== ENCOUNTER 2021-04-12 09:53 | Outpatient (CLI) | payer BC, SELFPAY ==
--- NOTE | 2021-04-12 | ECG_ITS ---
Measurements Intervals Boyd Rate: 65 P: 37 VT: 155 QRS: 106 QRSD: 92 T: 72 QT: 379 QTc: 396 Interpretive Statements SINUS RHYTHM RIGHT AXIS DEVIATION MINIMAL Q WAVES- INFERIOR LEADS BASELINE ARTIFACT- II, III, AVF BORDERLINE ECG Electronically Signed On 04-12-2021 10:20:28 CDT by Tono Trevino D.O.
== END 2021-04-12 09:54 | disposition home or self-care (01) ==
PROVIDERS: PCP Internal Medicine; Visit Provider Obstetrics & Gynecology
DX: R55 Syncope and collapse (principal)
CPT/HCPCS: 93005

== ENCOUNTER 2021-06-06 09:24 | Emergency (ER) | payer BC, SELFPAY ==
[2021-06-06 09:36] VITALS: BP 115/64; PULSE 68; RESP 16; TEMP 36.6; O2SAT 99
--- NOTE | 2021-06-06 10:49 | ED.GENADULT ---
HPI - General Adult General Chief complaint: Abdominal Pain Stated complaint: abd pain Source: patient Mode of arrival: ambulatory Limitations: no limitations History of Present Illness HPI narrative: Patient is a 31-year-old female presents to the [facility] via POV for evaluation of abdominal pain that began approximately 5 days ago. Additionally, she reports pain is sharp in nature. She is experiencing pain intermittently in upper and lower abdomen. She is also been low back pain, nausea, decreased appetite and poor p.o. intake. Denies taking OTC meds for symptoms since she is currently breast-feeding. Denies abdominal medical history. Related Data Home Medications Medication Instructions Recorded Confirmed 06/06/21 Allergies Allergy/AdvReac Type Severity Reaction Status Date / Time No Known Allergies Allergy Verified 06/06/21 10:13 Review of Systems Review of Systems: Denies past abdominal medical history. Pertinent negatives fever, chills, sweats, malaise, recent weight loss, lymphadenopathy, headache, sore throat, dizziness, LOC, urinary sxs, extremity paresthesias, blood in stool, vomiting, diarrhea, constipation, belching, bloating, dry mouth, heartburn, jaundice, vomiting blood PMFSH Past Medical History Medical History Ebsteins anomaly Surgical History Surgical History History of heart valve repair Family History Family History Mother Heart disease Social History Social History Smoking status: Never smoker Second hand tobacco smoke exposure: No Substance use: never Gender identity (if verbalized by the patient): Female Sexual Orientation (if Verbalized by the Patient): Straight or Heterosexual Spiritual care concerns: No Comments I have reviewed and agree with the patient's past medical, surgical, social, and family hx as documented by the RN. There is no relevant family history pertinent to the presenting complaint. Exam Narrative: GENERAL: Well-appearing, well-nourished, and in no acute distress. HEAD: Normocephalic, atraumatic. No sinus tenderness or facial swelling appreciated. EYES: PERRLA and EOMI. No evidence of erythema, swelling, or drainage. ENT: Mucous membranes moist and pink. Uvula is midline without erythema and swelling. No evidence of petechial rash, cobblestoning, lesions, ulcers, erythema, swelling, exudates, peritonsillar abscess, tenting, or drooling. Breath odor and voice normal. NECK: Supple. No Lymphadenopathy or nuchal rigidity appreciated. CHEST: Bilateral lung schwartz are clear to auscultation. No respiratory distress. No evidence of cough or pleuritic cp upon examination. HEART: Regular rate and rhythm. No murmur, gallop, or rub heard. ABDOMEN: Moderate pain elicited to left lower quad and right lower quadrant upon palpation. Abdomen is soft, nondistended, with hyperactive bowel sounds in all quadrants. No guarding. No rebound tenderness. No pulsatile or palpable abdominal mass(es). No CVAT EXTREMITIES: Normal range of motion. No edema. SKIN: Warm, dry, no rash. Excellent skin turgor. NEURO: No focal deficits. Alert and oriented x3. SPECIAL OBSERVATIONS: Course Course Emergency Course: The patient/guardian displays adequate decision making capability and despite a detailed discussion of alternatives, benefits, risks, and consequences refuses EMS transport to ER. Will transport via POV. Vital Signs Vital signs: Vital Signs Temperature 97.8 F 06/06/21 09:36 Pulse Rate 68 06/06/21 09:36 Respiratory Rate 16 06/06/21 09:36 Blood Pressure 115/64 06/06/21 09:36 Pulse Oximetry 99 06/06/21 09:36 Temperature 97.8 F 06/06/21 09:36 Pulse Rate 68 06/06/21 09:36 Respiratory Ra
== END 2021-06-06 11:17 | disposition short-term general hospital (02) ==
PROVIDERS: Emergency Provider Nurse Practitioner Family; PCP Internal Medicine
DX: R11.2 Nausea with vomiting, unspecified (principal)
CPT/HCPCS: 81003; 81025; 99213; G0463

== ENCOUNTER 2021-06-06 11:17 | Emergency (ER) | payer BC, SELFPAY ==
--- NOTE | ~2021-06-06 | CT_ITS ---
EXAMINATION: CT abdomen pelvis w con DATE: 06/06/2021 13:49 INDICATION: Abdominal pain and diarrhea TECHNIQUE: Computed tomography (CT) of the abdomen and pelvis was performed with 100 mL Omnipaque-350 intravenous contrast. Automated exposure control and iterative reconstruction technique were employe d. The dose-length product was 326.59 mGy-cm. COMPARISON: None FINDINGS: Lung bases are clear. Heart size is normal. Median sternotomy and tricuspid valve repair. No pericard ial or pleural effusion. Small focus of hepatic steatosis at the ligamentum teres. Gallbladder, pancr eas, spleen, bilateral adrenal glands and kidneys are normal. Normal retrocecal appendix. Bowels are normal with no abnormal wall thickening or obstruction. Bladder, anteverted uterus and bilateral adne xa are unremarkable. No free intraperitoneal gas or fluid. No pathologically enlarged abdominal or pe lvic lymphadenopathy. Minimal lumbar levocurvature. IMPRESSION: 1. No acute intra-abdominal/pelvic process. Reviewed, dictated and finalized at location A. ISION REPAIR TECHNICIAN
[2021-06-06 11:21] VITALS: BP 105/69; PULSE 69; RESP 17; TEMP 36.2; O2SAT 100
[2021-06-06 12:11] VITALS: BP 137/88; PULSE 74; RESP 16; TEMP 36.9; O2SAT 100
[2021-06-06 12:49] LABS: Basophils Absolute Auto 0.1 K/mm3 (0.0-0.1); Basophils Percent Auto 0.9 % (0.2-1.2); Eosinophils Absolute Auto 0.1 K/mm3 (0-0.3); Eosinophils Percent Auto 1.7 % (0-4.4); Hematocrit 41.3 % (37.0-47.0); Hemoglobin 14.1 g/dL (12.0-15.0); Immature Granulocyte Absolute 0.01 K/mm3 (0.00-0.031); Immature Granulocyte Percent A 0.2 % (0-0.5); Immature Platelet Fraction Pct 5.3 % (0.9-11.2); Lymphocytes Absolute Auto 1.46 K/mm3 (0.9-3.2); Lymphocytes Percent Auto 27.3 % (18.3-44.2); Mean Corpuscular HGB Conc 34.1 g/dl (32-36); Mean Corpuscular Hemoglobin 31.1 pg (26-34); Mean Corpuscular Volume 91.2 fl (80-100); Mean Platelet Volume 10.8 fl (7.4-10.4); Monocytes Absolute Auto 0.5 K/mm3 (0.1-0.6); Monocytes Percent Auto 8.4 % (2.6-8.5); Neutrophils Absolute Auto 3.3 K/mm3 (1.3-6.7); Neutrophils Percent Auto 61.5 % (45.5-73.1); Platelet Count Result 216 k/mm3 (150-375); Red Blood Count 4.53 M/mm3 (4.2-5.4); White Blood Count 5.4 K/mm3 (4.5-10.0)
--- NOTE | 2021-06-06 12:53 | ED.GENADULT ---
HPI - General Adult General Chief complaint: Unspecified Stated complaint: Low Back Pain N/V/D Time Seen by Provider: 06/06/21 12:21 Source: patient and RN notes reviewed Mode of arrival: ambulatory Limitations: no limitations History of Present Illness HPI narrative: This is a 31 year old female who presents for evaluation of nausea, diarrhea and abdominal pain for 6 days. Her symptoms started on Friday. She reports every time she eats she becomes bloated with nausea and diarrhea. She is reporting 5 episodes of diarrhea a day. She has associated diffuse abdominal cramping but she denies abdominal pain currently. She also denies fever, chills, cough or shortness of breath. She denies recent antibiotic use. She reports some family members have URI but no one is having vomiting or diarrhea. She has not tried any antidiarrhea medication because she is breast feeding. Related Data Home Medications Medication Instructions Recorded Confirmed 06/06/21 Allergies Allergy/AdvReac Type Severity Reaction Status Date / Time No Known Allergies Allergy Verified 06/06/21 10:13 Review of Systems Review of Systems: All systems reviewed & are unremarkable except as noted in HPI and below PMFSH Past Medical History Medical History Ebsteins anomaly Surgical History Surgical History History of heart valve repair Family History Family History Mother Heart disease Social History Social History Smoking status: Never smoker Second hand tobacco smoke exposure: No Substance use: never Gender identity (if verbalized by the patient): Female Sexual Orientation (if Verbalized by the Patient): Straight or Heterosexual Spiritual care concerns: No Exam Narrative: GENERAL: Well-appearing, well-nourished, and in no acute distress. HEAD: Normocephalic, atraumatic EYES: PERRLA and EOMI, conjunctiva clear without discharge THROAT:Mucous membranes moist, Oropharynx normal without erythema, exudate, peritonsillar swelling or fluctuance NECK: Supple, without lymphadenopathy or mass RESPIRATORY: No respiratory distress, Airway patent, Respirations non-labored, Clear to auscultation without rales, rhonchi or wheeze HEART: Regular rate and rhythm. Normal peripheral pulses. ABDOMEN: Soft,Diffuse tenderness, nondistended, normal active bowel sounds. No masses. No rebound or guarding, No organomegaly. EXTREMITIES: No edema, normal strength with full range of motion. SKIN: Warm, dry, normal color without rash NEURO: Alert and oriented x3. CN 2-12 grossly intact. No focal deficits. PSYCH: Normal mood and affect. Course Reevaluation(s) Reevaluation #1: I reviewed labs and CT with patient. I explained that she can use immodium for her diarrhea. She will also follow up with PCP if symptoms do not resolve in a couple days. She was given return precautions. Date: 06/06/21 Time: 14:41 Vital Signs Vital signs: Vital Signs Temperature 97.1 F L 06/06/21 11:21 Pulse Rate 69 06/06/21 11:21 Respiratory Rate 17 06/06/21 11:21 Blood Pressure 105/69 06/06/21 11:21 Pulse Oximetry 100 06/06/21 11:21 Temperature 98.4 F 06/06/21 12:11 Pulse Rate 73 06/06/21 15:10 Respiratory Rate 16 06/06/21 15:10 Blood Pressure 138/78 06/06/21 15:10 Pulse Oximetry 100 06/06/21 15:10 Medical Decision Making Vital Signs Vital Signs: Vital Signs Temperature 97.1 F L 06/06/21 11:21 Pulse Rate 69 06/06/21 11:21 Respiratory Rate 17 06/06/21 11:21 Blood Pressure 105/69 06/06/21 11:21 Pulse Oximetry 100 06/06/21 11:21 Temperature 98.4 F 06/06/21 12:11 Pulse Rate 73 06/06/21 15:10 Respiratory Rate 16 06/06/21 15:10 Blood Pressure 138/78 06/06/21 15
[2021-06-06 12:56] LABS: Add Urine Microscopic? NO; Appearance Urine Clear (Clear); Bilirubin Urine Negative (Negative); Blood Urine Negative (Negative); Color Urine Straw (Yellow); Glucose Urine UA Negative (Negative); Ketones Urine Negative (Negative); Leukocyte Esterase Ur Negative LEU/UL (Negative); Nitrate Urine Negative (Negative); Protein Urine Negative (Negative); Urobilinogen Urine Negative mg/dL (<2.0)
[2021-06-06 12:58] LABS: Alanine Aminotransferase 21 U/L (4-35); Albumin Level 4.8 g/dL (3.5-5.1); Alkaline Phosphatase 95 U/L (38-126); Anion Gap 10 mmol/L (8-16); Aspartate Amino Transferase 28 U/L (14-36); Bilirubin,Total 0.4 mg/dL (0.2-1.3); Blood Urea Nitrogen 11 mg/dL (7-17); Calcium 9.2 mg/dL (8.4-10.2); Carbon Dioxide 27 mmol/L (22-30); Chloride 104 mmol/L (98-107); Estimated CRCL calculation 90 ml/min; Estimated Glomerular Filt Rate > 60; Glucose 90 mg/dL (65-110); Lipase 39 U/L (23-300); Potassium 4.2 mmol/L (3.4-5.0); Sodium 141 mmol/L (137-145)
[2021-06-06 13:15] LABS: Specific Grav Ur 1.003 (1.001-1.035)
[2021-06-06] MEDS: LACTATED RINGERS 1,000 ML 999 ML IV CONT (14:10)
[2021-06-06 15:10] VITALS: BP 138/78; PULSE 73; RESP 16; O2SAT 100
== END 2021-06-06 15:13 | disposition home or self-care (01) ==
PROVIDERS: Physician Assistant; Emergency Provider General Practice; PCP Internal Medicine
DX: R19.7 Diarrhea, unspecified (principal); R10.9 Unspecified abdominal pain; Q22.5 Ebstein's anomaly
CPT/HCPCS: 36415; 74177; 80053; 81003; 81025; 83690; 85025; 85055; 96360; 99284; J7120; Q9967

== ENCOUNTER 2021-09-07 16:41 | Emergency (ER) | payer BC, SELFPAY ==
--- NOTE | ~2021-09-07 | XR_ITS ---
EXAMINATION: XR abdomen obstructive series DATE: 09/07/2021 17:19 INDICATION: Abdominal pain. Bloating. TECHNIQUE: Upright and supine views of the abdomen on 3 radiographs were obtained. COMPARISON: None. FINDINGS: There are no dilated loops of bowel. There is a moderate volume of stool in the colon. No f ree intraperitoneal gas. Calcifications in the pelvis are likely phleboliths. There are changes of he art valve replacement. IMPRESSION: 1. Normal bowel gas pattern. Reviewed, dictated and finalized at location A. ECT COACH
[2021-09-07 16:50] VITALS: BP 115/63; PULSE 70; RESP 18; TEMP 37; O2SAT 100
--- NOTE | 2021-09-07 16:51 | ED.GENADULT ---
HPI - General Adult General Chief complaint: Abdominal Pain Stated complaint: abd pain/swelling Time Seen by Provider: 09/07/21 16:50 Source: patient Mode of arrival: ambulatory Limitations: no limitations History of Present Illness HPI narrative: Ms. Catalan is a 31-year-old female patient presenting to the clinic today with complaints of abdominal discomfort and bloating x 6 days. She reports has had a history of constipation in the past where she has had impaction. She says she feels like that may be what is possibly going on. She says she has multiple small bowel movements daily for the last 6 days. Has nausea after eating and feels satisfied after a few bites of food. She denies any diarrhea or blood in stool. States that she noticed a small hemorrhoid that was mildly painful this morning but denies any bleeding. Is currently breast-feeding and had a 9 months ago. Related Data Home Medications Medication Instructions Recorded Confirmed 06/06/21 Allergies Allergy/AdvReac Type Severity Reaction Status Date / Time No Known Allergies Allergy Verified 06/06/21 10:13 Review of Systems Review of Systems: Pertinent positives per HPI. Patient denies any fever, chills, rash, headache, visual changes, dizziness, cough, runny nose, sore throat, shortness of breath, chest pain, palpitations, vomiting, diarrhea, or any urinary issues. [facility] Past Medical History Medical History Ebsteins anomaly Surgical History Surgical History History of heart valve repair Family History Family History Mother Heart disease Social History Social History Smoking status: Never smoker Second hand tobacco smoke exposure: No Substance use: never Gender identity (if verbalized by the patient): Female Sexual Orientation (if Verbalized by the Patient): Straight or Heterosexual Spiritual care concerns: No Comments At the time of my signature, I reviewed and agree with the nursing past medical, surgical, social, and family history. There is no relevant family history pertinent to the patient complaint. Exam Narrative: General: Well-developed, well nourished, in no apparent distress. Cardio: Regular rate and rhythm, s1 and s2 normal, no murmur appreciated. Resp: Clear to auscultation bilaterally, no rhonchi, rales, wheezing or rubs. Abdomen: Soft, pliable, mildly distended, bowel sounds hyperactive and present in all quadrants, mild tenderness upon palpation over the right side of the abdomen, no organomegly, no CVAT tenderness. Negative McBurney's and Longoria's sign. No rebound tenderness Course Course Emergency Course: Portions of this record may have been created with voice recognition software. Level of Care: Express Care Visit Vital Signs Vital signs: Vital signs reviewed Medical Decision Making MDM Narrative Medical decision making narrative: X-ray ordered to rule out constipation. ruled out appendicitis, acute abdomen, or bowel obstruction/perforation by exam. Differential Diagnosis Differential Diagnosis: Appendicitis, acute abdomen, bowel perforation, bowel obstruction, enteritis Medical Records Medical records reviewed: Yes I reviewed the external patient's medical records. Vital Signs Vital Signs: Vital signs reviewed Discharge Plan Discharge Clinical Impression: Constipation Qualifiers: Constipation type: other constipation type Qualified Code(s): K59.09 - Other constipation Patient Disposition: Home, Self-Care Condition: Stable Instructions: Constipation (ED), High Fiber Diet (ED) Additional Instructions: Increase fluids and stay well-hydrated. Increase fiber in diet. MiraLAX 1 scoop daily mixed with 8 ounces of water or j
== END 2021-09-07 17:34 | disposition home or self-care (01) ==
PROVIDERS: Emergency Provider Nurse Practitioner Family
DX: K59.00 Constipation, unspecified (principal); Q22.5 Ebstein's anomaly
CPT/HCPCS: 74019; 99213; G0463

== ENCOUNTER 2021-09-11 09:09 | Emergency (ER) | payer BC, SELFPAY ==
--- NOTE | ~2021-09-11 | CT_ITS ---
EXAMINATION: CT abdomen pelvis w con INDICATION: Abdominal pain and vomiting TECHNIQUE: Computed tomographic images of the abdomen and pelvis were obtained after the administrati on of 100 cc of Omnipaque 350 intravenous contrast. The dose-length product (DLP) was 306.58 mGy-cm. Automated exposure control and iterative reconstruction technique were employed. COMPARISON: 06/06/2021 FINDINGS: The lung bases are clear. The heart size is normal. The liver, spleen, pancreas, gallbladde r, and adrenal glands are normal. The kidneys are unremarkable. No pathologically enlarged abdominal or pelvic lymph nodes are identified. There is no free intraperitoneal gas or evidence of bowel obstr uction. The appendix is normal. The urinary bladder is distended. There is a small fat-containing um bilical hernia. There are cysts of the right ovary. IMPRESSION: 1. Distended urinary bladder. Reviewed, dictated and finalized at location B. 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
[2021-09-11 09:14] VITALS: BP 120/55; PULSE 69; RESP 18; TEMP 36.4; O2SAT 100
--- NOTE | 2021-09-11 09:45 | ED.ABDPAIN ---
HPI - Abdominal Pain General Chief Complaint: Abdominal Pain Stated Complaint: constipated with n/v Time Seen by Provider: 09/11/21 09:15 Source: patient Mode of arrival: ambulatory Limitations: no limitations History of Present Illness HPI narrative: This is a 31-year-old female that presents to the emergency department for constipation. Ongoing over the last couple of weeks. Reports worsening over the last couple of days. Associated with some abdominal discomfort and decreased appetite. Also reports some nausea and vomiting. Does report she has had bowel movements, but they have been small. Denies fever, dysuria, or hematuria. Related Data Home Medications Medication Instructions Recorded Confirmed 1 tab-cap DAILY 06/06/21 09/07/21 Allergies Allergy/AdvReac Type Severity Reaction Status Date / Time No Known Allergies Allergy Verified 06/06/21 10:13 Review of Systems Review of Systems: CONSTITUTIONAL: Denies fever GASTROINTESTINAL: Reports abdominal pain, nausea, vomiting. Denies diarrhea. GENITOURINARY: Denies dysuria or hematuria. All systems reviewed & are unremarkable except as noted in HPI and below PMFSH Past Medical History Medical History Ebsteins anomaly Surgical History Surgical History History of heart valve repair Family History Family History Mother Heart disease Social History Social History Smoking status: Never smoker Second hand tobacco smoke exposure: No Substance use: never Gender identity (if verbalized by the patient): Female Sexual Orientation (if Verbalized by the Patient): Straight or Heterosexual Spiritual care concerns: No Exam Narrative: GENERAL: Well-appearing, well-nourished, and in no acute distress. HEAD: Normocephalic, atraumatic. EYES: EOMI. CHEST: Clear to auscultation. No respiratory distress. No wheezes rales or rhonchi HEART: Regular rate and rhythm. No murmur heard. Normal peripheral pulses. ABDOMEN: Soft, nontender, nondistended, normal active bowel sounds. EXTREMITIES: Normal range of motion. No edema. SKIN: Warm, dry, no rash. NEURO: No focal deficits. Alert and oriented x3. PSYCH: Normal mood and affect Course Vital Signs Vital signs: Vital Signs Temperature 97.6 F 09/11/21 09:14 Pulse Rate 69 09/11/21 09:14 Respiratory Rate 18 09/11/21 09:14 Blood Pressure 120/55 L 09/11/21 09:14 Pulse Oximetry 100 09/11/21 09:14 Temperature 97.6 F 09/11/21 09:14 Pulse Rate 69 09/11/21 09:14 Respiratory Rate 18 09/11/21 09:14 Blood Pressure 120/55 L 09/11/21 09:14 Pulse Oximetry 100 09/11/21 09:14 MDM - Abdominal Pain MDM Narrative Medical decision making narrative: Patient presents to the emergency department for abdominal discomfort and constipation. She is afebrile and nontoxic-appearing. Her vitals are stable. CBC without concerning findings. Metabolic panel with evidence of acute kidney injury. No concerning electrolyte derangements. UA without evidence of infection. CT scan of the abdomen and pelvis is without acute findings. Showed some distention of the urinary bladder. We did bladder scan patient after voiding and this was without signs of retention. Patient was updated on case findings. I did recommend admission at this time for further treatment of her CHANEL. She declines. Patient was hydrated with IV fluids in the ED. Instructed to have close follow-up with her primary to recheck her labs to ensure improvement in kidney function. Also instructed with her ongoing GI issues she should follow-up with a gear technician. She was given warnings to return to the ER Lab Data Attestation: I reviewed the patient's lab results. Result diagrams:
[2021-09-11 09:58] LABS: Add Urine Microscopic? NO; Appearance Urine Clear (Clear); Bilirubin Urine Negative (Negative); Blood Urine Negative (Negative); Color Urine Straw (Yellow); Glucose Urine UA Negative (Negative); Ketones Urine Negative (Negative); Leukocyte Esterase Ur Negative LEU/UL (Negative); Nitrate Urine Negative (Negative); Protein Urine Negative (Negative); Urobilinogen Urine Negative mg/dL (<2.0)
[2021-09-11] MEDS: SODIUM CHLORIDE 0.9% IV 500 ML 999 ML IV CONT (10:04)
[2021-09-11 10:07] LABS: Basophils Absolute Auto 0.1 K/mm3 (0.0-0.1); Basophils Percent Auto 0.9 % (0.2-1.2); Eosinophils Absolute Auto 0.1 K/mm3 (0-0.3); Hematocrit 41.3 % (37.0-47.0); Hemoglobin 14.1 g/dL (12.0-15.0); Immature Granulocyte Absolute 0.01 K/mm3 (0.00-0.031); Immature Granulocyte Percent A 0.2 % (0-0.5); Lymphocytes Absolute Auto 1.51 K/mm3 (0.9-3.2); Lymphocytes Percent Auto 25.9 % (18.3-44.2); Mean Corpuscular HGB Conc 34.1 g/dl (32-36); Mean Corpuscular Hemoglobin 29.9 pg (26-34); Mean Corpuscular Volume 87.5 fl (80-100); Mean Platelet Volume 10.1 fl (7.4-10.4); Monocytes Absolute Auto 0.5 K/mm3 (0.1-0.6); Monocytes Percent Auto 8.8 % (2.6-8.5); Neutrophils Absolute Auto 3.7 K/mm3 (1.3-6.7); Neutrophils Percent Auto 63.2 % (45.5-73.1); Platelet Count Result 219 k/mm3 (150-375); Red Blood Count 4.72 M/mm3 (4.2-5.4); Red Cell Distribution Width 12.3 % (11.5-14.5); White Blood Count 5.8 K/mm3 (4.5-10.0)
[2021-09-11 10:10] LABS: Specific Grav Ur 1.004 (1.001-1.035)
[2021-09-11 10:22] LABS: Alanine Aminotransferase 46 U/L (4-35); Albumin Level 5.1 g/dL (3.5-5.1); Alkaline Phosphatase 113 U/L (38-126); Anion Gap 11 mmol/L (8-16); Aspartate Amino Transferase 47 U/L (14-36); Bilirubin,Total 0.3 mg/dL (0.2-1.3); Blood Urea Nitrogen 12 mg/dL (7-17); Calcium 9.3 mg/dL (8.4-10.2); Carbon Dioxide 26 mmol/L (22-30); Chloride 104 mmol/L (98-107); Estimated CRCL calculation 44 ml/min; Estimated Glomerular Filt Rate 41; Glucose 96 mg/dL (65-110); Lipase 60 U/L (23-300); Potassium 4.5 mmol/L (3.4-5.0); Sodium 141 mmol/L (137-145)
--- NOTE | 2021-09-11 12:07 | PC.NURSE ---
took the pt. to the bathroom and then bladder scanned her. The most urine found was 92 ml
[2021-09-11] MEDS: SODIUM CHLORIDE 0.9% IV 1,000 ML 999 ML IV CONT (12:54)
[2021-09-11 14:20] VITALS: BP 120/54; PULSE 64; RESP 16
== END 2021-09-11 14:20 | disposition home or self-care (01) ==
PROVIDERS: Physician Assistant; Emergency Provider Emergency Medicine; PCP Family Medicine
DX: K59.00 Constipation, unspecified (principal); N17.9 Acute kidney failure, unspecified
CPT/HCPCS: 36415; 51701; 74177; 80053; 81003; 81025; 83690; 85025; 96360; 96361; 99284; J7030; J7040; Q9967

== ENCOUNTER 2021-11-05 11:26 | Emergency (ER) | payer BC, SELFPAY ==
--- NOTE | ~2021-11-05 | XR_ITS ---
EXAMINATION: XR chest 2V DATE: 11/05/2021 13:11 INDICATION: Cough. Aspiration. TECHNIQUE: Frontal and lateral views of the chest were obtained. COMPARISON: Chest 2 views 02/24/2018, CT abdomen and pelvis 09/11/2021 FINDINGS: There is no pneumonia, pleural effusion, or pneumothorax. The heart size is normal. There a re surgical changes of tricuspid valve. There is mild pectus excavatum. IMPRESSION: 1. No acute cardiopulmonary disease. Reviewed, dictated and finalized at location B.
[2021-11-05 11:32] VITALS: BP 144/56; PULSE 87; RESP 18; TEMP 36.4; O2SAT 100
--- NOTE | 2021-11-05 13:56 | ED.URI ---
HPI - URI/Sore Throat General Chief Complaint: Upper Respiratory Infection <RAGHAVENDRA Cutler Last Filed: 11/05/21 14:01> Stated Complaint: cough <RAGHAVENDRA Cutler Last Filed: 11/05/21 14:01> Time Seen by Provider: 11/05/21 13:09 <RAGHAVENDRA Cutler Last Filed: 11/05/21 14:01> Source: patient <RAGHAVENDRA Cutler Last Filed: 11/05/21 14:01> Mode of arrival: ambulatory <RAGHAVENDRA Cutler Last Filed: 11/05/21 14:01> Limitations: no limitations <RAGHAVENDRA Cutler Last Filed: 11/05/21 14:01> History of Present Illness HPI Narrative: This is a 31-year-old female that presents to the emergency department for persistent cough. Reports about a week ago she felt as though she aspirated a pill she was trying to swallow. Couple of days after that she noted a cough. She was seen at urgent care for this and diagnosed with pneumonia. Reports she has been taking antibiotics as directed. Has had continued cough. Denies fever or shortness of breath. <RAGHAVENDRA Cutler Last Filed: 11/05/21 14:01> Related Data Home Medications: Home Medications Medication Instructions Recorded Confirmed 1 tab-cap DAILY 06/06/21 09/07/21 <RAGHAVENDRA Cutler Last Filed: 11/05/21 14:01> Allergies/Adverse Reactions: Allergies Allergy/AdvReac Type Severity Reaction Status Date / Time No Known Allergies Allergy Verified 11/05/21 11:35 <RAGHAVENDRA Cutler Last Filed: 11/05/21 14:01> Review of Systems Review of Systems: CONSTITUTIONAL: Denies fever RESPIRATORY: Reports cough. Denies dyspnea. <RAGHAVENDRA Cutler Last Filed: 11/05/21 14:01> All systems reviewed & are unremarkable except as noted in HPI and below <RAGHAVENDRA Cutler Last Filed: 11/05/21 14:01> [facility] Past Medical History Medical History: Medical History Ebsteins anomaly <Nadia Sweet PA-C - Last Filed: 11/05/21 14:01> Surgical History Surgical History: Surgical History History of heart valve repair <Nadia Sweet PA-C - Last Filed: 11/05/21 14:01> Family History Family History: Family History Mother Heart disease <Nadia Sweet PA-C - Last Filed: 11/05/21 14:01> Social History Social History: Social History Smoking status: Never smoker Second hand tobacco smoke exposure: No Substance use: never Gender identity (if verbalized by the patient): Female Sexual Orientation (if Verbalized by the Patient): Straight or Heterosexual Spiritual care concerns: No <Nadia Sweet PA-C - Last Filed: 11/05/21 14:01> Exam Narrative: GENERAL: Well-appearing, well-nourished, and in no acute distress. HEAD: Normocephalic, atraumatic. EYES: EOMI. ENT: Nares clear, no rhinorrhea or epistaxis. Mucous membranes moist. Oropharynx without tonsillar hypertrophy exudate or other lesions. NECK: Supple. No adenopathy or masses. CHEST: Clear to auscultation. No respiratory distress. No wheezes rales or rhonchi HEART: Regular rate and rhythm. Normal peripheral pulses. EXTREMITIES: Normal range of motion. No edema. SKIN: Warm, dry, no rash. NEURO: No focal deficits. Alert and oriented x3. 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
[2021-11-05 14:06] VITALS: RESP 18; O2SAT 99
== END 2021-11-05 14:07 | disposition home or self-care (01) ==
PROVIDERS: Emergency Provider Emergency Medicine; PCP Family Medicine
DX: R05.9 Cough, unspecified (principal); Z87.74 Personal history of (corrected) congenital malformations of heart and circulatory system; Z87.01 Personal history of pneumonia (recurrent)
CPT/HCPCS: 71046; 99283

== ENCOUNTER 2022-06-05 11:29 | Emergency (ER) | payer SELFPAY ==
[2022-06-05 11:41] VITALS: BP 125/69; PULSE 96; RESP 18; TEMP 37.6; O2SAT 98
--- NOTE | 2022-06-05 11:44 | ECG_ITS ---
Measurements Intervals [place] Rate: 86 P: 36 UT: 130 QRS: 115 QRSD: 102 T: 67 QT: 342 QTc: 410 Interpretive Statements SINUS RHYTHM RIGHT AXIS DEVIATION BORDERLINE ST ABNORMALITY- ANT/INF LEADS BASELINE WANDER- V3-V5 BORDERLINE ECG COMPARED TO ECG 04/12/2021 10:18:43 ST (T WAVE) DEVIATION NOW PRESENT Electronically Signed On 06-05-2022 12:40:26 [employer] by Tono Trevino D.O.
[2022-06-05 13:18] LABS: Influenza A QL RT-PCR Negative (Negative); Influenza B QL RT-PCR Negative (Negative); RSV RNA, RT-PCR Negative (Negative); SARS-CoV-2 RNA PCR Negative
--- NOTE | 2022-06-05 13:34 | PC.NURSE ---
Pt called mult times and is no longer in w/r. Pt did not notify anyone including signal tower director they were leaving.
== END 2022-06-05 13:34 | disposition left against medical advice (07) ==
LOC: ANHED 15:38
PROVIDERS: Emergency Provider Emergency Medicine; PCP Family Medicine
DX: R07.9 Chest pain, unspecified (principal)
CPT/HCPCS: 87637; 93005; 99199

== ENCOUNTER 2022-11-14 09:03 | Emergency (ER) | payer BC, SELFPAY ==
--- NOTE | 2022-11-14 09:11 | ED.URI ---
HPI - URI/Sore Throat General Chief Complaint: Upper Respiratory Infection Stated Complaint: Cough,Congestion,Body Aches,Chest Pain Time Seen by Provider: 11/14/22 09:15 Source: patient, RN notes reviewed and old records reviewed Mode of arrival: ambulatory Limitations: no limitations History of Present Illness HPI Narrative: 32 year old female presents to [facility] care with complaints of cough and sore throat, congestion, headache with no fever and body aches which started on Friday. Patient reported that her and son have tested positive for COVID. Patient reports that she has been taking Ibuprofen for her symptoms. Patient reports that she has been COVID vaccinated and has also had flu vaccine.Patient reports that her home test was negative but she is symptomatic and has been quarantining. Patient denies any nausea or vomiting or any diarrhea,denies any shortness of breath. MD elicited complaint: cough, sore throat and other (body aches, headache,) Pertinent past history: other (open heart surgery) Onset (ago): day(s) (2) Able to tolerate fluids by mouth: Yes Treatments prior to arrival: ibuprofen Related Data Home Medications Medication Instructions Recorded Confirmed 1 tab-cap DAILY 06/06/21 11/14/22 Allergies Allergy/AdvReac Type Severity Reaction Status Date / Time No Known Allergies Allergy Verified 11/14/22 09:20 Review of Systems Review of Systems: CONSTITUTIONAL: Reports malaise, chills, sweats, or fever. EYES: Denies visual changes, redness, or discharge. ENT: Reports rhinorrhea, congestion, sinus pain, no otalgia positive for sore throat. CARDIOVASCULAR: Denies chest pain, palpitations, or edema. RESPIRATORY: Reports cough.? Denies dyspnea. GASTROINTESTINAL: Denies abdominal pain, nausea, vomiting, diarrhea SKIN: Denies rash or itching. MUSCULOSKELETAL: reports myalgia. NEUROLOGIC: Reports headache. All systems reviewed & are unremarkable except as noted in HPI and below PMFSH Past Medical History Medical History (Updated 11/14/22 @ 18:45 by Ashley Mclaughlin NP) Ebsteins anomaly Hx of migraines Surgical History Surgical History (Updated 11/14/22 @ 18:46 by Ashley Mclaughlin NP) History of heart valve repair Previous section S/P LASIK surgery of both eyes Family History Family History Mother Heart disease Social History Social History Smoking status: Never smoker Second hand tobacco smoke exposure: No Substance use: never Gender identity (if verbalized by the patient): Female Sexual Orientation (if Verbalized by the Patient): Straight or Heterosexual Spiritual care concerns: No Comments At time of signature, agree with nursing past medical, surgical, social and family history. There is no relevant family history pertinent to the presenting complaint Exam Narrative: GENERAL: Well-appearing, well-nourished, and in no acute distress. HEAD: Normocephalic EYES: PERRLA, conjunctivae clear ENT: Nares clear, turbinates edematous and erythematous, clear discharge. Mucous membranes moist. TM pearly celis with dull light reflex bilaterally; no tragal tenderness. Oropharynx erythematous without lesions. Tonsils not enlarged and without exudate, no drooling, no hoarseness, no trismus, uvula midline. NECK: Supple. No lymphadenopathy CHEST: Clear to auscultation, breath sounds equal. No wheezing, rhonchi, rales, or stridor. No respiratory distress, speaks in full sentences.SAO2 100% on room air.cough HEART: Regular rate and rhythm. No murmur heard. SKIN: Warm, dry, no rash. NEURO: Alert and oriented x3. PSYCH: Normal mood and affect Course Course Emergency Course: Patient is aware of diagnosis, understands and agrees to treatment plan.? Anticipatory guidance given.? Patient agrees to follow-up as directed a
[2022-11-14 09:17] VITALS: BP 120/79; PULSE 73; RESP 18; TEMP 36.3; O2SAT 100
--- NOTE | 2022-11-14 09:55 | PC.NURSE ---
PT DECLINES PCR FOR COVID, DECLINES FLU TESTING.
== END 2022-11-14 10:00 | disposition home or self-care (01) ==
PROVIDERS: Emergency Provider Registered Nurse; PCP Family Medicine
DX: J06.9 Acute upper respiratory infection, unspecified (principal); Z20.822 Contact with and (suspected) exposure to COVID-19
CPT/HCPCS: 87081; 87426; 87880; 99213; C9803; G0463

== ENCOUNTER 2023-02-15 10:10 | Emergency (ER) | payer BC, SELFPAY ==
--- NOTE | ~2023-02-15 | XR_ITS ---
EXAMINATION: XR abdomen/kub 1V INDICATION: Abdominal pain TECHNIQUE: Supine view of the abdomen is obtained. COMPARISON: 09/07/2021 FINDINGS: The bowel gas pattern is normal. There are no dilated loops of bowel. Phleboliths are noted in the left pelvis. IMPRESSION: 1. No radiographic correlate for the patient's symptoms. Reviewed, dictated and finalized at location A.
[2023-02-15 10:19] VITALS: BP 109/53; PULSE 64; RESP 16; TEMP 36.5; O2SAT 100
--- NOTE | 2023-02-15 10:55 | ED.ABDPAIN ---
HPI - Abdominal Pain General Chief Complaint: Abdominal Pain Stated Complaint: Abdominal Pain Time Seen by Provider: 02/15/23 10:44 Source: patient and RN notes reviewed Mode of arrival: ambulatory Limitations: no limitations History of Present Illness HPI narrative: Patient presents today complaining of 3 day history of generalized abdominal pain. Patient has history of irritable bowel syndrome with chronic diarrhea for which she does not take any prescribed medications. When she got home from vacation a few weeks ago she drank half a bottle of magnesium citrate for which she did have some bowel movements, but feels that her bowel movements have not been enough quantity since that time. Three days ago she started having abdominal pain and had has a couple of episodes of diarrhea. Since that time her pain has been worsening and radiates to her low back. She currently describes her pain as achy and crampy with intermittent sharp pains. Currently rates her pain 4/10. Denies blood or mucus in stool. Denies known fever. No nausea or vomiting. Related Data Home Medications Medication Instructions Recorded Confirmed No Home Medications 02/15/23 02/15/23 Allergies Allergy/AdvReac Type Severity Reaction Status Date / Time No Known Allergies Allergy Verified 02/15/23 10:24 Review of Systems Review of Systems: CONSTITUTIONAL: Denies body aches, fever, chills, or sweats. EYES: Denies visual changes, redness, or discharge. ENT: Denies rhinorrhea, congestion, sore throat, or otalgia. CARDIOVASCULAR: Denies chest pain, palpitations, or edema. RESPIRATORY: Denies cough or dyspnea. GASTROINTESTINAL: Denies nausea, vomiting. + abdominal pain, constipation, diarrhea GENITOURINARY: Denies dysuria or hematuria. SKIN: Denies rash, itching, or wounds. MUSCULOSKELETAL: Denies back pain, joint pain, or myalgia. NEUROLOGIC: Denies headache, numbness, tingling, or weakness. PSYCH: Denies depression or anxiety. [facility] Past Medical History Medical History Ebsteins anomaly Hx of migraines Surgical History Surgical History History of heart valve repair Previous section S/P LASIK surgery of both eyes Family History Family History Mother Heart disease Social History Social History Smoking status: Never smoker Second hand tobacco smoke exposure: No Substance use: never Gender identity (if verbalized by the patient): Female Sexual Orientation (if Verbalized by the Patient): Straight or Heterosexual Spiritual care concerns: No Comments At time of signature, I have reviewed and agree with nursing past medical, surgical, social and family history unless otherwise noted. Please see nursing chart for further information. There is no relevant family history pertinent to the presenting complaint Exam Narrative: GENERAL: Well-appearing, well-nourished, and in no acute distress. HEAD: Normocephalic, atraumatic. EYES: EOMI. No redness or drainage. Conjunctivae normal. ENT: Mucous membranes pink and moist. NECK: Normal AROM. CHEST: No respiratory distress. Clear to auscultation. HEART: Regular rate and rhythm. No murmur appreciated. Normal peripheral pulses. ABDOMEN: Soft, nondistended, normal active bowel sounds.+ right lower quadrant and periumbilical abdominal pain without rebound or guarding. EXTREMITIES: Normal range of motion. No edema. SKIN: Warm, dry, no rash. Capillary refill normal. Normal skin turgor. NEURO: No focal deficits. Alert and oriented x3. Gait steady. PSYCH: Normal affect. No signs of depression or anxiety. Course Course Level of Care: Express Care Visit Vital Signs Vital signs: Vital Signs Temperature 97.7 F 02/15/23 10:1
== END 2023-02-15 11:40 | disposition short-term general hospital (02) ==
PROVIDERS: Emergency Provider Nurse Practitioner; PCP Family Medicine
DX: R10.84 Generalized abdominal pain (principal); Q22.5 Ebstein's anomaly
CPT/HCPCS: 74018; 99213; G0463

== ENCOUNTER 2023-02-15 12:04 | Emergency (ER) | payer BC, SELFPAY ==
--- NOTE | ~2023-02-15 | CT_ITS ---
EXAMINATION: CT abdomen pelvis w con INDICATION: Right lower quadrant abdominal pain TECHNIQUE: Computed tomographic images of the abdomen and pelvis were obtained after the administrati on of 100 cc of Omnipaque 350 intravenous contrast. The dose-length product (DLP) was 492.43 mGy-cm. Automated exposure control and iterative reconstruction technique were employed. COMPARISON: 09/11/2021 FINDINGS: The lung bases are clear. The heart size is normal. The liver, spleen, pancreas, gallbladde r, and adrenal glands are normal. The kidneys are unremarkable. No pathologically enlarged abdominal or pelvic lymph nodes are identified. No free intraperitoneal gas or evidence of bowel obstruction. T he appendix is normal. There is a fat-containing umbilical hernia. IMPRESSION: 1. No CT correlate for the patient's symptoms. Reviewed, dictated and finalized at location A.
[2023-02-15 12:05] VITALS: BP 121/88; PULSE 66; RESP 18; TEMP 36.4; O2SAT 100
--- NOTE | 2023-02-15 12:16 | ED.ABDPAIN ---
HPI - Abdominal Pain General Chief Complaint: Abdominal Pain Stated Complaint: abd pain Time Seen by Provider: 02/15/23 12:16 History of Present Illness HPI narrative: Patient is a 33-year-old female with history of irritable bowel syndrome, chronic diarrhea, multiple open heart surgeries in the past sent here from urgent care for abdominal pain. Pain has been present for 3 days, is in her lower abdomen, radiates into her back. Pain is both sharp and crampy and associated with some diarrhea over the first 2 days but has now resolved. No blood in stool. No change in pain with bowel movements however after she defecates she continues to feel like she needs to go to the bathroom. No prior colonoscopy in the past. She does note longstanding history of bowel issues and she has plans to see a GI doctor in the near future. Of note patient was on vacation in a few weeks ago, upon return she was having some constipation. She self-medicated with some magnesium citrate which resulted in several bowel movements. She notes that she has felt continued constipation since that time. additionally she notes her last menstrual period began approximately 12 days ago, was much more heavy than it normally is associated with cramping. She typically gets her period approximately every 60 days due to breast-feeding her 2-year-old child however this last period occurred earlier than it normally does. She notes just trace dark discharge similar to that of a menstrual cycle at this point. She denies any concern for STI. Related Data Allergies Allergy/AdvReac Type Severity Reaction Status Date / Time No Known Allergies Allergy Verified 02/15/23 12:09 Review of Systems Review of Systems: All systems reviewed & are unremarkable except as noted in HPI and below Constitutional: Comments: no fever or chills Cardiovascular: Comments: no chest pain Respiratory: Respiratory: Reports cough Comments: no shortness of breath. Gastrointestinal: Gastrointestinal: Reports as per HPI Genitourinary: Genitourinary: Reports as per HPI Musculoskeletal: Musculoskeletal: Reports no additional musculoskeletal complaints PMFSH Past Medical History Medical History Ebsteins anomaly Hx of migraines Surgical History Surgical History History of heart valve repair Previous section S/P LASIK surgery of both eyes Family History Family History Mother Heart disease Social History Social History Smoking status: Never smoker Second hand tobacco smoke exposure: No Substance use: never Gender identity (if verbalized by the patient): Female Sexual Orientation (if Verbalized by the Patient): Straight or Heterosexual Spiritual care concerns: No Exam Narrative: GENERAL: Well-appearing, well-nourished, and in no acute distress. HEAD: Normocephalic, atraumatic. EYES: PERRLA and EOMI. ENT: Nares clear. Mucous membranes moist. NECK: Supple. CHEST: Clear to auscultation. No respiratory distress. HEART: Regular rate and rhythm. Normal peripheral pulses. ABDOMEN: Soft, tender in the periumbilical region as well as suprapubically. No rebound or guarding. EXTREMITIES: Normal range of motion. No edema. SKIN: Warm, dry, no rash. NEURO: No focal deficits. Alert and oriented x3. PSYCH: Normal mood and affect. Course Course Emergency Course: Chart review performed. Patient was seen at an urgent care today. Urgent care note reviewed. There she was found to have RLQ tenderness and she was sent into the ED for further workup. Abdominal xray performed there was read as negative by radiologist. Triage vital signs within normal limits today, afebrile. Patient seen and evaluated. Physical exam r
[2023-02-15 12:31] VITALS: O2SAT 100
[2023-02-15 12:50] LABS: Basophils Absolute Auto 0.1 K/mm3 (0.0-0.1); Basophils Percent Auto 0.6 % (0.2-1.2); Eosinophils Absolute Auto 0.1 K/mm3 (0-0.3); Eosinophils Percent Auto 0.9 % (0-4.4); Hematocrit 40.8 % (37.0-47.0); Hemoglobin 13.8 g/dL (12.0-15.0); Immature Granulocyte Absolute 0.03 K/mm3 (0.00-0.031); Immature Granulocyte Percent A 0.3 % (0-0.5); Lymphocytes Absolute Auto 1.76 K/mm3 (0.9-3.2); Lymphocytes Percent Auto 19.9 % (18.3-44.2); Mean Corpuscular HGB Conc 33.8 g/dl (32-36); Mean Corpuscular Hemoglobin 30.1 pg (26-34); Mean Corpuscular Volume 89.1 fl (80-100); Monocytes Absolute Auto 0.5 K/mm3 (0.1-0.6); Monocytes Percent Auto 5.9 % (2.6-8.5); Neutrophils Absolute Auto 6.4 K/mm3 (1.3-6.7); Neutrophils Percent Auto 72.4 % (45.5-73.1); Platelet Count Result 280 k/mm3 (150-375); Red Blood Count 4.58 M/mm3 (4.2-5.4); White Blood Count 8.9 K/mm3 (4.5-10.0)
[2023-02-15 12:53] VITALS: O2SAT 98
[2023-02-15 12:56] LABS: Appearance Urine Clear (Clear); Bacteria Urine Rare /hpf; Bilirubin Urine Negative (Negative); Blood Urine 1+ (Negative); Color Urine Yellow (Yellow); Glucose Urine UA Negative (Negative); Ketones Urine Negative (Negative); Leukocyte Esterase Ur 2+ LEU/UL (Negative); Nitrate Urine Negative (Negative); Non Pathogenic Casts 0-2; Protein Urine Negative (Negative); RBC Urine 0-2 /hpf (0-2); Specific Grav Ur 1.009 (1.001-1.035); Squamous Epithelial Cell Urine Few /hpf (Few); Urobilinogen Urine 0.2 mg/dL (<2.0); pH Urine 6.5 (5.0-9.0)
[2023-02-15 13:00] VITALS: O2SAT 96
[2023-02-15 13:00] LABS: Alanine Aminotransferase 24 U/L (6-35); Albumin Level 4.7 g/dL (3.5-5.1); Alkaline Phosphatase 60 U/L (38-126); Anion Gap 8 mmol/L (8-16); Aspartate Amino Transferase 29 U/L (14-36); Bilirubin,Total 0.4 mg/dL (0.2-1.3); Blood Urea Nitrogen 9 mg/dL (7-17); Calcium 9.2 mg/dL (8.4-10.2); Carbon Dioxide 25 mmol/L (22-30); Chloride 106 mmol/L (98-107); Estimated CRCL calculation 102 ml/min; Estimated Glomerular Filt Rate > 60; Glucose 116 mg/dL (65-110); Lipase 43 U/L (23-300); Potassium 4.1 mmol/L (3.4-5.0); Sodium 139 mmol/L (137-145)
[2023-02-15 13:04] LABS: CRP 1.3 mg/dL (<1.0)
[2023-02-15 13:21] LABS: Add Urine Microscopic? YES
[2023-02-15 14:15] VITALS: BP 109/52; PULSE 68; RESP 16; TEMP 37; O2SAT 99
== END 2023-02-15 14:25 | disposition home or self-care (01) ==
PROVIDERS: Emergency Provider Student in an Organized Health Care Education/Training Program; PCP Family Medicine
DX: N30.00 Acute cystitis without hematuria (principal); K58.0 Irritable bowel syndrome with diarrhea
CPT/HCPCS: 36415; 74177; 80053; 81001; 81025; 83690; 85025; 86140; 87086; 99284; Q9967

== ENCOUNTER 2023-03-10 09:39 | Emergency (ER) | payer BC, SELFPAY ==
--- NOTE | 2023-03-10 10:13 | ED.FEMALEGU ---
HPI - Female Genitourinary General Chief complaint: Urogenital-Female Stated complaint: uti symptoms Time Seen by Provider: 03/10/23 11:14 Source: patient and RN notes reviewed Mode of arrival: ambulatory Limitations: no limitations History of Present Illness HPI Narrative: 33-year-old female presents with concern for urinary tract infection. She reports she was treated 3 weeks ago for urinary tract infection with cephalexin, reports symptoms resolved within 2-3 days of the antibiotic. She reports she began having symptoms again on with suprapubic cramping, low back pain, frequency, and some nausea. She denies chills, fever, sweats, vomiting. She is breast feeding MD elicited complaint: UTI Related Data Allergies Allergy/AdvReac Type Severity Reaction Status Date / Time No Known Allergies Allergy Verified 02/15/23 12:09 Review of Systems Review of Systems: CONSTITUTIONAL: Denies malaise, chills, sweats, or fever. CARDIOVASCULAR: Denies chest pain, palpitations, or edema. RESPIRATORY: Denies cough or dyspnea. GASTROINTESTINAL: Denies abdominal pain, nausea, vomiting, diarrhea GENITOURINARY: Reports frequency, suprapubic cramping. Denies dysuria,urgency. Denies flank pain or hematuria. SKIN: Denies rash or itching. MUSCULOSKELETAL: Denies myalgia. Reports low back pain All systems reviewed & are unremarkable except as noted in HPI and below PMFSH Past Medical History Medical History Ebsteins anomaly Hx of migraines Surgical History Surgical History History of heart valve repair Previous section S/P LASIK surgery of both eyes Family History Family History Mother Heart disease Social History Social History Smoking status: Never smoker Second hand tobacco smoke exposure: No Substance use: never Gender identity (if verbalized by the patient): Female Sexual Orientation (if Verbalized by the Patient): Straight or Heterosexual Spiritual care concerns: No Comments At time of signature, agree with nursing past medical, surgical, social and family history. There is no relevant family history pertinent to the presenting complaint Exam Narrative: GENERAL: Well-appearing, well-nourished, and in no acute distress. HEAD: Normocephalic. EYES: PERRLA, conjunctivae clear. NECK: Supple. No lymphadenopathy CHEST: Clear to auscultation. No respiratory distress. HEART: Regular rate and rhythm. ABDOMEN: Soft, mild right suprapubic tenderness, nondistended, normal active bowel sounds, no palpable or pulsatile masses, no guarding. No CVA tenderness SKIN: Warm, dry, no rash. NEURO: Alert and oriented x3. PSYCH: Normal mood and affect Course Course Emergency Course: I discussed with patient her urinalysis results, following up with her mechanic helper for further evaluation given this is the 2nd time this has happened several weeks. Patient's symptoms are not wholly consistent with urinary tract infection, she prefers to start antibiotic pending culture. Patient is aware of diagnosis, understands and agrees to treatment plan. Anticipatory guidance given. Patient agrees to follow-up as directed and is aware of reasons to seek care at the emergency department. Portions of this record may have been created with voice recognition software Level of Care: Express Care Visit Vital Signs Vital signs: Reviewed. MDM - Female Genitourinary MDM Narrative Medical decision making narrative: Exam findings and UA show no acute concerns or changes; patient is non-toxic appearing and is in no distress. Patient is appropriate for outpatient treatment and follow-up. Differential Diagnosis Differential diagnosis: Likely urinary tract infection and cystitis Cri
[2023-03-10 10:30] VITALS: BP 102/54; PULSE 65; RESP 16; TEMP 36.3; O2SAT 100
== END 2023-03-10 11:46 | disposition home or self-care (01) ==
PROVIDERS: Emergency Provider Nurse Practitioner; PCP Family Medicine
DX: M54.50 Low back pain, unspecified (principal); R35.0 Frequency of micturition
CPT/HCPCS: 81003; 87086; 87088; 99213; G0463

== ENCOUNTER 2023-04-11 18:19 | Emergency (ER) | payer BC, SELFPAY ==
[2023-04-11 18:27] VITALS: BP 117/52; PULSE 61; RESP 16; TEMP 36.1; O2SAT 100
--- NOTE | 2023-04-11 18:31 | ED.URI ---
HPI - URI/Sore Throat General Chief Complaint: Upper Respiratory Infection Stated Complaint: Sore Throat Time Seen by Provider: 04/11/23 18:31 Source: patient, RN notes reviewed and old records reviewed Mode of arrival: ambulatory Limitations: no limitations History of Present Illness HPI Narrative: 33-year-old female presents to the [facility] with complaints of a sore throat for the last 2-3 hours. Reports exposures to both strep throat and COVID-19. Patient is declining COVID testing at this time No treatment prior to arrival Onset (ago): hour(s) (2-3) Related Data Home Medications Medication Instructions Recorded Confirmed No Home Medications 04/11/23 04/11/23 Allergies Allergy/AdvReac Type Severity Reaction Status Date / Time No Known Allergies Allergy Verified 04/11/23 18:31 Review of Systems Review of Systems: All systems reviewed & are unremarkable except as noted in HPI and below Constitutional: Constitutional: Reports no additional constitutional complaints Eyes: Eyes: Reports no additional eye complaints ENT: Reports as per HPI and Reports sore throat Cardiovascular: Cardiovascular: Reports no additional cardiovascular complaints, Denies chest pain and Denies dyspnea Respiratory: Respiratory: Reports no additional respiratory complaints, Denies chest congestion, Denies cough and Denies dyspnea Gastrointestinal: Gastrointestinal: Reports no additional gastrointestinal complaints, Denies abdominal pain, Denies nausea and Denies vomiting Musculoskeletal: Musculoskeletal: Reports no additional musculoskeletal complaints Integumentary/Breasts: Skin/Breast: Reports system reviewed and no additional complaints, except as docu Neurologic: Reports system reviewed and no additional complaints, except as documented Psychiatric: Psychiatric: Reports no additional psychiatric complaints Allergic/Immunologic: Allergic/Immunologic: Reports no additional allergic/immunologic complaints [facility] Past Medical History Medical History Ebsteins anomaly Hx of migraines Surgical History Surgical History History of heart valve repair Previous section S/P LASIK surgery of both eyes Family History Family History Mother Heart disease Social History Social History Smoking status: Never smoker Second hand tobacco smoke exposure: No Substance use: never Gender identity (if verbalized by the patient): Female Sexual Orientation (if Verbalized by the Patient): Straight or Heterosexual Spiritual care concerns: No Comments At the time of my signature, I reviewed and agree with the nursing past medical, surgical, social, and family history. There is no relevant family history pertinent to the patient complaint. Exam Const: General: cooperative, healthy appearing, comfortable, no acute distress, well developed, alert and well nourished Nutritional Appearance: well nourished Orientation/consciousness: patient oriented x3 Limitations: no limitations HENMT: Head: normal to inspection Ears: hearing grossly normal bilaterally, external ears normal, TM's normal bilaterally, EAC's normal and mastoids normal Face/Nose/Sinus: Normal external nose present, Normal nares present, Normal nasal mucous membranes and turbinates present, normal facial exam and face symmetric Face and sinus: normal facial exam and face symmetric Mouth: Yes Normal oral and palatal mucosa present, Yes lip normal and Yes moist mucous membranes Throat: posterior oropharynx normal, uvula midline, abnormal tonsil on the right other (right lower tonsil tonsil stone noted); no erythema, no exudates and no hypertrophy and on the left (normal) and no postnasal drainage Eyes: General: appearance normal, both eyes and all re
== END 2023-04-11 19:12 | disposition home or self-care (01) ==
PROVIDERS: Emergency Provider Nurse Practitioner; PCP Family Medicine
DX: J02.9 Acute pharyngitis, unspecified (principal); Z20.822 Contact with and (suspected) exposure to COVID-19
CPT/HCPCS: 87081; 87426; 87880; 99213; C9803; G0463

== ENCOUNTER 2023-12-14 18:14 | Emergency (ER) | payer BC, SELFPAY ==
--- NOTE | ~2023-12-14 | XR_ITS ---
Left ankle Technique: AP, oblique, and lateral views were obtained. Clinical History: Pain Findings: No acute fracture or dislocation is seen. Osseous alignment is anatomic. Ankle mortise and other visualized joint spaces are preserved. Soft tissues are otherwise unremarkable. Impression: Unremarkable left ankle. Reviewed, dictated and finalized at location . Impression: Unremarkable left ankle.
--- NOTE | 2023-12-14 18:19 | ED.LOWEXIN ---
HPI - Extremity Injury (Lower) General Chief Complaint: Extremity Problem,Nontraumatic Stated Complaint: lt foot pain Time Seen by Provider: 12/14/23 18:30 Source: patient, RN notes reviewed and old records reviewed Mode of arrival: ambulatory Limitations: no limitations History of Present Illness HPI Narrative: 33-year-old female presents to the [facility] with 8 weeks of left anterior ankle pain. States that she slipped and hurt both of her ankles. States the right ankle is better however there is no improvement on the left ankle. No treatment prior to arrival Related Data Home Medications Medication Instructions Recorded Confirmed levothyroxine 25 mcg tablet mcg 12/14/23 Allergies Allergy/AdvReac Type Severity Reaction Status Date / Time No Known Allergies Allergy Verified 12/14/23 18:26 Review of Systems Review of Systems: All systems reviewed & are unremarkable except as noted in HPI and below Constitutional: Constitutional: Reports no additional constitutional complaints Eyes: Eyes: Reports no additional eye complaints ENT: Reports system reviewed and no additional complaints, except as documented Cardiovascular: Cardiovascular: Reports no additional cardiovascular complaints, Denies chest pain and Denies dyspnea Respiratory: Respiratory: Reports no additional respiratory complaints, Denies chest congestion, Denies cough and Denies dyspnea Gastrointestinal: Gastrointestinal: Reports no additional gastrointestinal complaints, Denies abdominal pain, Denies nausea and Denies vomiting Musculoskeletal: Musculoskeletal: Reports as per HPI, Reports arthralgias and Denies joint swelling Integumentary/Breasts: Skin/Breast: Reports system reviewed and no additional complaints, except as docu Neurologic: Reports system reviewed and no additional complaints, except as documented Psychiatric: Psychiatric: Reports no additional psychiatric complaints Allergic/Immunologic: Allergic/Immunologic: Reports no additional allergic/immunologic complaints [facility] Past Medical History Medical History Ebsteins anomaly Hx of migraines Surgical History Surgical History History of heart valve repair Previous section S/P LASIK surgery of both eyes Family History Family History Mother Heart disease Social History Social History Smoking status: Never smoker Second hand tobacco smoke exposure: No Substance use: never Gender identity (if verbalized by the patient): Female Sexual Orientation (if Verbalized by the Patient): Straight or Heterosexual Spiritual care concerns: No Comments At the time of my signature, I reviewed and agree with the nursing past medical, surgical, social, and family history. There is no relevant family history pertinent to the patient complaint. Exam Const: General: cooperative, healthy appearing, comfortable, no acute distress, well developed, alert and well nourished Nutritional Appearance: well nourished Orientation/consciousness: patient oriented x3 Limitations: no limitations HENMT: Head: normal to inspection Ears: hearing grossly normal bilaterally and external ears normal Face/Nose/Sinus: Normal external nose present, Normal nares present, Normal nasal mucous membranes and turbinates present, normal facial exam and face symmetric Face and sinus: normal facial exam and face symmetric Eyes: General: appearance normal, both eyes and all related structures Alignment and Position: alignment normal Periorbital: periorbital findings normal Pupils: Equal, round and reactive pupils present EOM: EOMs intact bilaterally Neck: Neck: normal visual inspection, full ROM, no lymphadenopathy and no meningeal signs Chest: Chest palpation & inspection: normal in
[2023-12-14 18:26] VITALS: BP 110/57; PULSE 70; RESP 18; TEMP 36.7; O2SAT 99
== END 2023-12-14 19:28 | disposition home or self-care (01) ==
PROVIDERS: Emergency Provider Nurse Practitioner; PCP Nurse Practitioner Family
DX: S93.402A Sprain of unspecified ligament of left ankle, initial encounter (principal); W01.0XXA Fall on same level from slipping, tripping and stumbling without subsequent striking against object, initial encounter; Q22.5 Ebstein's anomaly
CPT/HCPCS: 73610; 99213; G0463

== ENCOUNTER 2024-02-15 09:04 | Emergency (ER) | payer BC, SELFPAY ==
--- NOTE | ~2024-02-15 | XR_ITS ---
EXAMINATION: XR knee RT 3V DATE: 02/15/2024 10:15 INDICATION: Right knee injury. TECHNIQUE: 4 views of right knee were obtained. COMPARISON: None. FINDINGS: Bone alignment is normal. No fracture. Joint spaces are normal. No knee joint effusion. IMPRESSION: 1. Normal right knee. Reviewed, dictated and finalized at location E. IMPRESSION: 1. Normal right knee.
[2024-02-15 09:17] VITALS: BP 129/76; PULSE 60; RESP 18; TEMP 36.3; O2SAT 100
--- NOTE | 2024-02-15 09:21 | ED.GENADULT ---
HPI - General Adult General Chief complaint: Skin/Abscess/Foreign Body Stated complaint: slipped and fell split knee open Time Seen by Provider: 02/15/24 09:22 Source: patient Mode of arrival: ambulatory Limitations: no limitations History of Present Illness HPI narrative: 34-year-old female patient presents to the [facility] with complaints of a laceration on the right knee. Patient states she was in [place] and fell and landed on a big rock and her knee split open. Patient states she is up-to-date on her tetanus shot since she has had a baby within the last 5 years. Related Data Home Medications Medication Instructions Recorded Confirmed levothyroxine 25 mcg tablet 25 mcg PO DAILY 12/14/23 02/15/24 Allergies Allergy/AdvReac Type Severity Reaction Status Date / Time No Known Allergies Allergy Verified 02/15/24 09:09 Review of Systems Review of Systems: CONSTITUTIONAL: Denies fever, chills, or sweats. EYES: Denies visual changes, redness, or discharge. ENT: Denies rhinorrhea, congestion, sore throat, or otalgia. CARDIOVASCULAR: Denies chest pain, palpitations, or edema. RESPIRATORY: Denies cough or dyspnea. GASTROINTESTINAL: Denies abdominal pain, nausea, vomiting, or diarrhea. GENITOURINARY: Denies dysuria or hematuria. SKIN: Denies rash or itching. Positive laceration to right knee MUSCULOSKELETAL: Denies back pain, joint pain, or myalgia. NEUROLOGIC: Denies headache, numbness, or weakness. PSYCHIATRIC: Denies anxiety or depression. [facility] Past Medical History Medical History Ebsteins anomaly Hx of migraines Surgical History Surgical History History of heart valve repair Previous section S/P LASIK surgery of both eyes Family History Family History Mother Heart disease Social History Social History Smoking status: Never smoker Second hand tobacco smoke exposure: No Substance use: never Gender identity (if verbalized by the patient): Female Sexual Orientation (if Verbalized by the Patient): Straight or Heterosexual Spiritual care concerns: No Comments At the time of my signature I agree with nursing past medical history, surgical, social, and family history. There is no relevant family history pertinent to the presenting complaint. Exam Narrative: GENERAL: Well-appearing, well-nourished, and in no acute distress. HEAD: Normocephalic, atraumatic. EYES: PERRLA and EOMI. ENT: Nares clear, no rhinorrhea or epistaxis. Mucous membranes moist. NECK: Supple. No lymphadenopathy CHEST: Clear to auscultation. No respiratory distress. HEART: Regular rate and rhythm. No murmur heard. Normal peripheral pulses. ABDOMEN: Soft, nontender, nondistended, normal active bowel sounds. EXTREMITIES: Normal range of motion. No edema. SKIN: Warm, dry, no rash. patient has a proximally 2 cm linear are laceration along right patella it is gaping open and well approximated. No obvious evidence of a foreign body. NEURO: No focal deficits. Alert and oriented x3. Course Course Level of Care: Express Care Visit Vital Signs Vital signs: Vital Signs Temperature 36.3 C L 02/15/24 09:17 Pulse Rate 60 02/15/24 09:17 Respiratory Rate 18 02/15/24 09:17 Blood Pressure 129/76 02/15/24 09:17 Pulse Oximetry 100 02/15/24 09:17 Oxygen Delivery Room Air 02/15/24 09:17 Temperature 36.3 C L 02/15/24 09:17 Pulse Rate 60 02/15/24 09:17 Respiratory Rate 18 02/15/24 09:17 Blood Pressure 129/76 02/15/24 09:17 Pulse Oximetry 100 02/15/24 09:17 Oxygen Delivery Room Air 02/15/24 09:17 Vital signs reviewed. Procedures Laceration Laceration 1: Date: 02/15/24 Site: lower extremity (knee) Side (If applicable): right D
== END 2024-02-15 10:27 | disposition home or self-care (01) ==
PROVIDERS: Emergency Provider Nurse Practitioner Family; PCP Nurse Practitioner Family
DX: S81.011A Laceration without foreign body, right knee, initial encounter (principal); S80.01XA Contusion of right knee, initial encounter; W19.XXXA Unspecified fall, initial encounter
CPT/HCPCS: 12001; 73562; 99213; G0463

== ENCOUNTER 2024-02-24 17:41 | Emergency (ER) | payer BC, SELFPAY ==
--- NOTE | 2024-02-24 18:07 | ED.WOUNDLAC ---
HPI - Wound/Laceration General Chief Complaint: Recheck/Abnormal Lab/Rx Stated Complaint: Sutcure Removal Time Seen by Provider: 02/24/24 18:22 Source: patient and RN notes reviewed Mode of arrival: ambulatory Limitations: no limitations History of Present Illness HPI narrative: 34-year-old female presents concern for suture removal. She had 3 sutures placed in her right knee 9 days ago. She reports 1 of the sutures came on tired when he got caught on a blanket last night. She reports tenderness, redness, drainage around the site. Related Data Home Medications Medication Instructions Recorded Confirmed levothyroxine 25 mcg tablet 25 mcg PO DAILY 12/14/23 02/24/24 Allergies Allergy/AdvReac Type Severity Reaction Status Date / Time No Known Allergies Allergy Verified 02/24/24 18:25 Review of Systems Review of Systems: CONSTITUTIONAL: Denies malaise, chills, sweats, or fever. SKIN: Reports healing laceration to her right knee with surrounding redness, tenderness, drainage MUSCULOSKELETAL: Denies muscle skeletal pain NEUROLOGIC: Denies numbness, weakness All systems reviewed & are unremarkable except as noted in HPI and below PMFSH Past Medical History Medical History Ebsteins anomaly Hx of migraines Surgical History Surgical History History of heart valve repair Previous section S/P LASIK surgery of both eyes Family History Family History Mother Heart disease Social History Social History Smoking status: Never smoker Second hand tobacco smoke exposure: No Substance use: never Gender identity (if verbalized by the patient): Female Sexual Orientation (if Verbalized by the Patient): Straight or Heterosexual Spiritual care concerns: No Comments At time of signature, agree with nursing past medical, surgical, social and family history. There is no relevant family history pertinent to the presenting complaint Exam Narrative: GENERAL: Well-appearing, well-nourished, and in no acute distress. HEAD: Normocephalic, atraumatic. EYES: PERRLA, conjunctivae clear, and EOMI. ENT: Mucous membranes moist. NECK: Supple. No lymphadenopathy CHEST: Clear to auscultation. No respiratory distress. HEART: Regular rate and rhythm. SKIN: Warm, dry. Well-approximated healed laceration with 3 sutures noted to the right knee with small amount yellow drainage, proximally 2 cm of erythema and induration surrounding the wound NEURO: Alert and oriented x3. PSYCH: Normal mood and affect Course Course Emergency Course: Patient is aware of diagnosis, understands and agrees to treatment plan. Anticipatory guidance given. Patient agrees to follow-up as directed and is aware of reasons to seek care at the emergency department. Portions of this record may have been created with voice recognition software Level of Care: Express Care Visit Vital Signs Vital signs: Reviewed. MDM - Wound/Laceration MDM Narrative Medical decision making narrative: Verbal consent was obtained. Wound well approximated, no erythema, induration, or discharge noted. Three sutures completely removed in a sterile fashion. Patient tolerated procedure well, no complications. Patient advised to look for and return for any signs of infection such as redness, swelling, discharge, or worsening pain. Differential Diagnosis Differential diagnosis: Likely laceration, abrasion and avulsion of skin Critical Care Time Critical Care Time Critical Care Time: No Discharge Plan Discharge Clinical Impression: Encounter for removal of sutures Patient Disposition: Home, Self-Care Condition: Stable Instructions: Antibiotic Form, Wound Infection (ED) Additional Instructions: Please follow up with you
[2024-02-24 18:16] VITALS: BP 107/50; PULSE 57; RESP 16; TEMP 36.8; O2SAT 100
== END 2024-02-24 19:00 | disposition home or self-care (01) ==
PROVIDERS: Emergency Provider Nurse Practitioner; PCP Nurse Practitioner Family
DX: S81.011D Laceration without foreign body, right knee, subsequent encounter (principal); X58.XXXD Exposure to other specified factors, subsequent encounter
CPT/HCPCS: 99213; G0463

== ENCOUNTER 2024-12-27 17:47 | Emergency (ER) | payer BC, SELFPAY ==
[2024-12-27 17:57] VITALS: BP 102/56; PULSE 61; RESP 18; TEMP 36.3; O2SAT 100
[2024-12-27 18:05] LABS: EDSTREPNEGPOS1 Negative (Negative)
--- NOTE | 2024-12-27 18:30 | ED_ITS ---
HPI - URI/Sore Throat General Chief Complaint: Upper Respiratory Infection Stated Complaint: Sore throat Time Seen by Provider: 12/27/24 18:18 Source: patient and RN notes reviewed Mode of arrival: ambulatory Limitations: no limitations History of Present Illness HPI Narrative: Patient presents today complaining of a 2 week history of productive cough, rhinorrhea, nasal congestion and copious postnasal drainage. Two days ago she developed body aches, sore throat, and fatigue. Denies fever or shortness of breath. She has been using Claritin and Flonase without much relief. Son was diagnosed with strep throat 10 days ago. Related Data Home Medications ?Medication ?Instructions ?Recorded ?Confirmed ?Last Taken ?Type levothyroxine 25 mcg tablet 25 mcg PO DAILY 12/14/23 12/27/24 Unknown History Allergies Allergy/AdvReac Type Severity Reaction Status Date / Time No Known Allergies Allergy Verified 12/27/24 17:51 Review of Systems Review of Systems: CONSTITUTIONAL:+ body aches, fatigue. EYES: Denies visual changes, redness, or discharge. ENT: Otalgia.+ sore throat, postnasal drip, rhinorrhea, congestion CARDIOVASCULAR: Denies chest pain, palpitations, or edema. RESPIRATORY: Denies dyspnea.+ cough GASTROINTESTINAL: Denies abdominal pain, nausea, vomiting, or diarrhea. GENITOURINARY: Denies dysuria or hematuria. SKIN: Denies rash, itching, or wounds. MUSCULOSKELETAL: Denies back pain, joint pain, or myalgia. NEUROLOGIC: Denies headache, numbness, tingling, or weakness. PSYCH: Denies depression or anxiety. [facility] Past Medical History Medical History (Updated 12/27/24 @ 18:33 by Elizabeth Pardo, JACQUELYN, JOY) Pulmonary hypertension History of palpitations Congenital heart disease Hx of migraines Ebsteins anomaly Surgical History Surgical History S/P LASIK surgery of both eyes Previous section History of heart valve repair Family History Family History Mother Heart disease Social History Social History Smoking status: Never smoker Second hand tobacco smoke exposure: No Substance use: never Gender identity (if verbalized by the patient): Female Sexual Orientation (if Verbalized by the Patient): Straight or Heterosexual Spiritual care concerns: No Comments At time of signature, I have reviewed and agree with nursing past medical, surgi dedrick, social and family history unless otherwise noted. Please see nursing chart for further information. There is no relevant family history pertinent to the presenting complaint Exam Narrative: GENERAL: Mildly ill-appearing, well-nourished, and in no acute distress. HEAD: Normocephalic, atraumatic. EYES: EOMI. No redness or drainage. Conjunctivae normal. ENT: Mucous membranes pink and moist. Nares congested with rhinorrhea. TMs normal bilaterally. Throat normal. Uvula midline. NECK: Normal AROM. Supple. No lymphadenopathy. CHEST: No respiratory distress. Clear to auscultation. HEART: Regular rate and rhythm. No murmur appreciated. EXTREMITIES: Normal range of motion. No edema. SKIN: Warm, dry, no rash. Capillary refill normal. Normal skin turgor. NEURO: No focal deficits. Alert and oriented x3. Gait steady. PSYCH: Normal affect. No signs of depression or anxiety. Course Course Level of Care: Express Care Visit Vital Signs Vital signs: Vital Signs Temperature 97.3 F L 12/27/24 17:57 Pulse Rate 61 12/27/24 17:57 Respiratory Rate 18 12/27/24 17:57 Blood Pressure 102/56 L 12/27/24 17:57 Pulse Oximetry 100 12/27/24 17:57 Oxygen Delivery Room Air 12/27/24 17:57 Temperature 97.3 F L 12/27/24 17:57 Pulse Rate 61 12/27/24 17:57 Respiratory Rate 18 12/27/24 17:57 Blood Pressure 102/56 L 12/27/24 17:57 Pulse Oximetry 100 12/27/24 17:57 Oxygen Delivery Room Air 12/27/24 17:57 Reviewed MDM - URI/Sore Throat MDM Narrative Medical decision making narrative: Rapid strep negative. Culture pending. Patient will be treated with Augmentin for presumed sinusitis. Copious postnasal drainage is likely the source of her cough as well. Recommend continuing Claritin and Flonase. ED precautions and anticipatory guidance given. Differential Diagnosis Differential diagnosis: Likely upper respiratory infection, sinusitis, viral infection, bronchitis, pharyngitis and other (Strep throat) Lab Data Attestation: I reviewed the patient's lab results. Labs: Lab Results 12/27/24 Range/Units 18:02 POC Grp A Strep Screen Negative (Negative) Critical Care Time Critical Care Time Critical Care Time: No Discharge Plan Discharge Clinical Impression: Sinusitis Qualifiers: Sinusitis location: unspecified location Chronicity: acute Recurrence: non- recurrent Qualified Code(s): J01.90 - Acute sinusitis, unspecified Patient Disposition: Home Condition: Stable Instructions: Antibiotic Form, Sinusitis (ED) Additional Instructions: Please take the Augmentin as prescribed until gone. Your rapid strep is negative. You will be notified by telephone if your strep culture comes back positive. Continue the Claritin and Flonase and consider adding an anti- inflammatory such as ibuprofen or Aleve. Follow-up with your PCP in 3-4 days if symptoms are not improving. Patient Language: Thai Prescriptions: New amoxicillin-pot clavulanate 875-125 mg tablet 1 tablet PO Q12H 10 Days Qty: 20 0RF No Action levothyroxine 25 mcg tablet 25 mcg PO DAILY Follow-up/Referrals: Augusto,Elizabeth Crowell APRN [Primary Care Provider] - Time of Disposition: 18:29
== END 2024-12-27 18:31 | disposition home or self-care (01) ==
PROVIDERS: Emergency Provider Nurse Practitioner; PCP Nurse Practitioner Family
DX: J01.90 Acute sinusitis, unspecified (principal); I27.20 Pulmonary hypertension, unspecified; Q22.5 Ebstein's anomaly
CPT/HCPCS: 87081; 87880; 99213; G0463